=== PATIENT | female | born 1980 | race Caucasian/White ===

== ENCOUNTER 2018-10-25 20:07 | Emergency (ER) | payer MEDICAID ==
[2018-10-25] MEDS ORDERED: HYDROcod/ACETAM 5/325 MG TABLET PO STA (20:57)
[2018-10-25] MEDS ORDERED: DOXYCYCLINE 100 MG TABLET PO STA (20:57)
[2018-10-25] MEDS ORDERED: IPRATROPIUM/ALBUTEROL 3 ML NEB INH STA (20:57)
[2018-10-25] MEDS ORDERED: predniSONE 20 MG TABLET PO STA (20:57)
[2018-10-25] MEDS ORDERED: BENZONATATE 100 MG CAPSULE PO STA (20:58)
--- NOTE | 2018-10-25 21:07 | ED Physician Documentation ---
PD HPI URI - Stated complaint Stated Complaint: SOA - Chief complaint Chief Complaint: Resp - History obtained from History obtained from: Patient - History of Present Illness Timing - onset: Other (This is a 38-year-old woman with history of asthma, never hospitalized for same, also tobacco abuse who presents with 2 weeks of productive cough and severe back and chest pain related to the cough as well as shortness of breath. Her Combivent inhaler is not helping much. She has had some low-grade fevers. No pedal edema or calf pain. 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: Tubal ligation - Present Medications Home Medications: Ambulatory Orders Medication Instructions Recorded Confirmed Albuterol Sulf [Ventolin Hfa 1 - 2 puffs INH Q4HR PRN #1 inhaler 10/25/18 Inhaler] Benzonatate [Tessalon Perle] 100 - 200 mg PO TID PRN #30 capsule 10/25/18 Doxycycline Hyclate 100 mg PO BID #20 capsule 10/25/18 Hydrocodone/Acetaminophen 1 - 2 each PO Q6H PRN #14 tablet 10/25/18 [Hydrocodon-Acetaminophen 5-325] predniSONE [Deltasone] 60 mg PO DAILY 5 Days tablet 10/25/18 - Allergies Allergies/Adverse Reactions: Allergies Allergy/AdvReac Type Severity Reaction Status Date / Time codeine AdvReac Nausea Verified 10/25/18 20:13 - Social History Does the pt smoke?: Yes Smoking Status: Current every day smoker Does the pt drink ETOH?: Yes Does the pt have substance abuse?: Yes Substance Use and Type: Marijuana - Immunizations Immunizations are current?: No - POLST Patient has POLST: No PD ED PE NORMAL - Vitals Vital signs reviewed: Yes - General General: Alert and oriented X 3, No acute distress - HEENT HEENT: PERRL, EOMI, Other (Slightly hoarse and laryngitic voice with normal oropharynx) - Neck Neck: Supple, no meningeal sign, No bony TTP - Cardiac Cardiac: RRR, No murmur - Respiratory Respiratory: No respiratory distress, Other (Wheezy throughout with decreased air motion throughout, nothing focal.) - Abdomen Abdomen: Non tender - Derm Derm: No rash - Extremities Extremities: Normal ROM s pain, No edema, No calf tenderness / cord - Neuro Neuro: Alert and oriented X 3, Normal speech Results - Vitals Vitals: Vital Signs - 24 hr 10/25/18 10/25/18 20:10 21:06 Temperature 36.1 C L Heart Rate 83 84 Respiratory 17 20 Rate Blood Pressure 133/87 H O2 Saturation 99 Oxygen O2 Source Room air Departure - Departure Disposition: Home, Self Care Clinical Impression: Bronchitis Asthma Qualifiers: Asthma severity: moderate Asthma persistence: persistent Asthma complication type: with acute exacerbation Qualified Code(s): J45.41 - Moderate persistent asthma with (acute) exacerbation Condition: Good Record reviewed to determine appropriate education?: Yes Instructions: ED Bronchitis Asthmatic, ED Smoking Cessation Prescriptions: Albuterol Sulf [Ventolin Hfa Inhaler] 1 - 2 puffs INH Q4HR PRN #1 inhaler PRN Reason: Shortness Of Air/Wheezing Benzonatate [Tessalon Perle] 100 - 200 mg PO TID PRN #30 capsule PRN Reason: Cough Doxycycline Hyclate 100 mg PO BID #20 capsule Hydrocodone/Acetaminophen [Hydrocodon-Acetaminophen 5-325] 1 - 2 each PO Q6H PRN #14 tablet PRN Reason: pain predniSONE [Deltasone] 60 mg PO DAILY 5 Days tablet Comments: Call your doctor to arrange a follow-up appointment, make the next available appointment. In the interim, return anytime if worse or if new symptoms develop. Your blood pressure was elevated today on check into the emergency department. This does not mean that you have hypertension, it is a common phenomenon to come to the emergency department and have elevated blood pressure. I recommend that you see your primary care physician within the week to have it rechecked when you are feeling better. [facility] has a tobacco quit line that can help you with quitting smoking. The number is [id number] [id number]
[2018-10-25] MEDS ORDERED: HYDROcod/ACET 5/325 Prepack 4 PO STA (21:32)
[2018-10-25 21:46] VITALS: BP 116/102
== END 2018-10-25 22:03 | disposition home or self-care (01) ==
LOC: ED 20:07
DX: J40 Bronchitis, not specified as acute or chronic (principal); J45.41 Moderate persistent asthma with (acute) exacerbation; R03.0 Elevated blood-pressure reading, without diagnosis of hypertension; F17.200 Nicotine dependence, unspecified, uncomplicated
CPT/HCPCS: 94640; 94664; 99283

== ENCOUNTER 2018-12-25 19:18 | Emergency (ER) | payer MEDICAID ==
[2018-12-25 19:24] VITALS: BP 144/89
[2018-12-25] MEDS ORDERED: predniSONE 20 MG TABLET PO STA (19:37)
[2018-12-25] MEDS ORDERED: IPRATROPIUM/ALBUTEROL 3 ML NEB INH STA (19:37)
[2018-12-25] MEDS ORDERED: HYDROcod/ACETAM 5/325 MG TABLET PO STA (19:41)
--- NOTE | 2018-12-25 19:41 | ED Physician Documentation ---
PD HPI URI - Stated complaint Stated Complaint: SOA/BACK PX - Chief complaint Chief Complaint: Resp - History obtained from History obtained from: Patient - History of Present Illness Timing - onset: Other (38-year-old woman with history of asthma and tobacco abuse presents with 3 weeks of productive cough and shortness of breath with increased inhaler usage. 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: Tubal ligation - Present Medications Home Medications: Ambulatory Orders Medication Instructions Recorded Confirmed Albuterol Sulf [Ventolin Hfa 1 - 2 puffs INH Q4HR PRN #1 inhaler 10/25/18 Inhaler] Doxycycline Hyclate 100 mg PO BID #20 capsule 12/25/18 Hydrocodone/Acetaminophen 1 - 2 each PO Q6H PRN #10 tablet 12/25/18 [Hydrocodon-Acetaminophen 5-325] predniSONE [Deltasone] 60 mg PO DAILY 5 Days tablet 12/25/18 - Allergies Allergies/Adverse Reactions: Allergies Allergy/AdvReac Type Severity Reaction Status Date / Time codeine AdvReac Nausea Verified 12/25/18 19:24 - Social History Does the pt smoke?: Yes Smoking Status: Current every day smoker Does the pt drink ETOH?: Yes Does the pt have substance abuse?: Yes - Immunizations Immunizations are current?: No - POLST Patient has POLST: No PD ED PE NORMAL - Vitals Vital signs reviewed: Yes - General General: Alert and oriented X 3, No acute distress - HEENT HEENT: Pharynx benign (Laryngitic voice) - Neck Neck: Supple, no meningeal sign, No bony TTP - Cardiac Cardiac: RRR, No murmur - Respiratory Respiratory: Other (diminished throughout) - Abdomen Abdomen: Soft, Non tender - Extremities Extremities: No edema, No calf tenderness / cord - Neuro Neuro: Alert and oriented X 3, Normal speech Results - Vitals Vitals: Vital Signs - 24 hr 12/25/18 12/25/18 19:20 19:52 Temperature 36.4 C L Heart Rate 84 80 Respiratory 18 18 Rate Blood Pressure 144/89 H O2 Saturation 98 Oxygen O2 Source Room air PD MEDICAL DECISION MAKING - ED course ED course: 38-year-old woman with asthma presents with 3 weeks of productive cough and shortness of breath. Probably has some element of COPD given heavy smoking history. Feeling better after neb and steroids here. Chest x-ray grossly clear. Counseled to quit smoking. Departure - Departure Disposition: Home, Self Care Clinical Impression: Bronchitis Asthma Qualifiers: Asthma severity: moderate Asthma persistence: persistent Asthma complication type: with acute exacerbation Qualified Code(s): J45.41 - Moderate persistent asthma with (acute) exacerbation Condition: Good Record reviewed to determine appropriate education?: Yes Instructions: Bronchitis Acute Dc, ED Smoking Cessation Prescriptions: Doxycycline Hyclate 100 mg PO BID #20 capsule Hydrocodone/Acetaminophen [Hydrocodon-Acetaminophen 5-325] 1 - 2 each PO Q6H PRN #10 tablet PRN Reason: pain predniSONE [Deltasone] 60 mg PO DAILY 5 Days tablet Comments: Call your doctor to arrange a follow-up appointment, make the next available appointment. In the interim, return anytime if worse or if new symptoms develop. Forms: Activity restrictions
[2018-12-25] MEDS ORDERED: DOXYCYCLINE 100 MG TABLET PO STA (20:21)
--- NOTE | 2018-12-25 20:45 | XRAY Report ---
Reason: cough Procedure Date: 12/25/2018 Accession Number: [id number] / [id number] Procedure: XR - Chest 1 View X-Ray CPT Code: 92217 FULL RESULT: EXAM: CHEST RADIOGRAPHY EXAM DATE: 12/25/2018 08:22 PM. CLINICAL HISTORY: Cough. COMPARISON: None. TECHNIQUE: 1 view. FINDINGS: Lungs/Pleura: Mild diffuse interstitial prominence with minimal bronchial cuffing. No localized infiltrate, consolidation, effusion, or pneumothorax. Mediastinum: Within exam limitations, the cardiomediastinal contour is normal. Other: None. IMPRESSION: Interstitial prominence, most likely bronchitis versus chronic changes of reactive airways disease. RADIA
== END 2018-12-25 21:05 | disposition home or self-care (01) ==
LOC: ED 19:18
DX: J40 Bronchitis, not specified as acute or chronic (principal); J45.41 Moderate persistent asthma with (acute) exacerbation; F17.200 Nicotine dependence, unspecified, uncomplicated; Z79.51 Long term (current) use of inhaled steroids
CPT/HCPCS: 71045; 94640; 99283; A9270; J7512

== ENCOUNTER 2020-08-01 08:08 | Emergency (ER) | payer SELFPAY ==
[2020-08-01 08:27] VITALS: BP 156/104
[2020-08-01] MEDS ORDERED: PENICILLIN VK 250 MG TABLET PO STA (08:29)
--- NOTE | 2020-08-01 08:34 | ED Physician Documentation ---
History of Present Illness - Stated complaint Stated Complaint: FACIAL SWELLING - Chief complaint Chief Complaint: Heent - History obtained from History obtained from: Patient - History of Present Illness Timing: How many weeks ago (1) Pain level max: 8 Pain level now: 6 - Additonal information Additional information: R facial pain, swelling x 2 days. States tried to get into her dentist, but unable to be seen. No fevers. No chills. No vomiting. Worse with smoking, eating, drinking. States motrin not helping. Nothing makes it better. Review of Systems Constitutional: denies: Fever, Chills Ears: denies: Ear pain Nose: denies: Rhinorrhea / runny nose, Congestion Throat: reports: Dental pain / toothache. 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 - Present Medications Home Medications: Ambulatory Orders Medication Instructions Recorded Confirmed Albuterol Sulf [Ventolin Hfa 1 - 2 puffs INH Q4HR PRN #1 inhaler 10/25/18 Inhaler] HYDROcod/ACETAM 5/325 [[place] 5/325] 1 - 2 ea PO Q6H PRN #14 tablet 08/01/20 Ipratropium/Albuterol [Combivent 4 gm IH 08/01/20 Respimat] Penicillin V Potassium 500 mg PO Q6HR #40 tablet 08/01/20 - Allergies Allergies/Adverse Reactions: Allergies Allergy/AdvReac Type Severity Reaction Status Date / Time codeine AdvReac Nausea Verified 08/01/20 08:27 - Social History Does the pt smoke?: Yes Smoking Status: Current every day smoker Does the pt drink ETOH?: Yes Does the pt have substance abuse?: Yes - Immunizations Immunizations are current?: No - POLST Patient has POLST: No PD ED PE NORMAL - General General: Alert and oriented X 3, No acute distress - HEENT HEENT: Moist mucous membranes, Other (poor dentition throughout, no facial swelling, no gingival abscess. Normal phonation. No trismus.) - Neck Neck: Supple, no meningeal sign, No adenopathy - Cardiac Cardiac: RRR - Respiratory Respiratory: No respiratory distress, Clear bilaterally - Derm Derm: Warm and dry - Neuro Neuro: Alert and oriented X 3 Results - Vitals Vitals: Vital Signs - 24 hr 08/01/20 08:22 Temperature 36.8 C Heart Rate 77 Respiratory 16 Rate Blood Pressure 156/104 H O2 Saturation 100 Oxygen O2 Source Room air PD MEDICAL DECISION MAKING - ED course Complexity details: considered differential, d/w patient ED course: 40-year-old female with what appears to be dental caries causing dental pain. Will place on antibiotics and a small amount of pain medication. We will have her follow-up with her dentist for further care. No drainable abscess. Normal phonation. No trismus. Patient counseled regarding signs and symptoms for which I believe and urgent re-evaluation would be necessary. Patient with good understanding of and agreement to plan and is comfortable going home at this time This document was made in part using voice recognition software. While efforts are made to proofread this document, sound alike and grammatical errors may occur. Departure - Departure Disposition: 01 Home, Self Care Clinical Impression: Pain due to dental caries Condition: Good Instructions: ED Tooth Pain Follow-Up: your,dentist this week [Other] Prescriptions: Penicillin V Potassium 500 mg PO Q6HR #40 tablet HYDROcod/ACETAM 5/325 [[place] 5/325] 1 - 2 ea PO Q6H PRN #14 tablet PRN Reason: Pain Comments: Take all antibiotics until gone. Return if you worsen. It is important to follow-up with dentistry as soon as possible to have your tooth further evaluated. Do not drink alcohol or drive while on narcotic pain medicine. Note that many narcotic pain relievers also contain tylenol/acetaminophen. Please ensure that your total dose of acetaminophen from all sources does not exceed 3 grams (3000mg) per day. You may constipated on this medication, take a stool softener such as "Colace" twice a day while you are on it. Also recommend a egln-agf-fuoozop laxative such as senna or MiraLAX any day that you do not have a bowel movement. If you received narcotic pain medication in the emergency department, do not drive or operate machinery for the next 24 hours.
== END 2020-08-01 08:47 | disposition home or self-care (01) ==
LOC: ED 08:08
DX: K02.9 Dental caries, unspecified (principal); F17.200 Nicotine dependence, unspecified, uncomplicated
CPT/HCPCS: 99282; 99284; A9270

== ENCOUNTER 2020-08-27 04:49 | Inpatient (IN) | payer SELFPAY ==
[2020-08-27] MEDS ORDERED: HYDROmorphone 1 MG/ML CARPUJECT IVP STA (05:20)
[2020-08-27] MEDS ORDERED: KETOROLAC 30 MG/ML VIAL IVP STA (05:20)
--- NOTE | 2020-08-27 05:28 | ED Physician Documentation ---
History of Present Illness - Stated complaint Stated Complaint: FACIAL SWELLING - Chief complaint Chief Complaint: Heent - History obtained from History obtained from: Patient - Additonal information Additional information: Patient comes emergency department with chief complaint of right facial swelling despite penicillin. The patient was seen approximately 3-1/2 weeks ago at our emergency department for dental pain and facial swelling, at which time she was treated and told of her need to follow-up with the dentist. The patient did follow-up with a dentist last week and was started on penicillin. She states that initially this seemed to help, but over the last few days, the swelling has gotten steadily worse, as has the facial pain. She states that she has been able to swallow, but that it hurts and feels tight. Patient denies any fevers or chills. No vomiting. She states she has pain in one of her left mandibular molars, but no swelling on that side. Patient denies any swelling higher up on her face. She has been taking her penicillin every day as directed for 4 to 5 days and this is happened despite. No other complaints at this time. Review of Systems Ten Systems: 10 systems reviewed and negative Constitutional: reports: Reviewed and negative Eyes: reports: Reviewed and negative Ears: reports: Reviewed and negative Nose: reports: Reviewed and negative Throat: reports: Dental pain / toothache, Reviewed and negative (Swelling mandibular area right) Cardiac: reports: Reviewed and negative Respiratory: reports: Reviewed and negative GI: reports: Reviewed and negative : reports: Reviewed and negative Skin: reports: Reviewed and negative Musculoskeletal: reports: Reviewed and negative Neurologic: reports: Reviewed and negative Psychiatric: reports: Reviewed and negative Endocrine: reports: Reviewed and negative Immunocompromised: reports: Reviewed and negative PD PAST MEDICAL HISTORY - Past Medical History Past Medical History: Yes Respiratory: Asthma, Sleep apnea GI: GERD Psych: Anxiety - Past Surgical History Past Surgical History: Yes General: Cholecystectomy /[employer]: Tubal ligation - Present Medications Home Medications: Ambulatory Orders Medication Instructions Recorded Confirmed Albuterol Sulf [Ventolin Hfa 1 - 2 puffs INH Q4HR PRN #1 inhaler 10/25/18 Inhaler] Ibuprofen [Motrin] 800 mg PO Q6H PRN 08/27/20 08/27/20 Ipratropium/Albuterol [Duoneb] 3 ml INH QID PRN 08/27/20 08/27/20 Penicillin V Potassium 500 mg PO QID 08/27/20 08/27/20 clonazePAM [KlonoPIN] 0.5 mg PO BID PRN 08/27/20 08/27/20 - Allergies Allergies/Adverse Reactions: Allergies Allergy/AdvReac Type Severity Reaction Status Date / Time codeine AdvReac Nausea Verified 08/27/20 04:59 - Social History Does the pt smoke?: Yes Smoking Status: Current every day smoker Does the pt drink ETOH?: Yes Does the pt have substance abuse?: Yes - Immunizations Immunizations are current?: No - POLST Patient has POLST: No PD ED PE NORMAL - Vitals Vital signs reviewed: Yes - General General: Alert and oriented X 3, No acute distress - HEENT HEENT: Atraumatic, PERRL, EOMI, Moist mucous membranes (No drooling; patient is handling secretions well.), Other (Moderate swelling of left mandibular and submental area. No distinct abscess. No intraoral edema including gingiva. No fluctuance or mass.) - Neck Neck: Supple, no meningeal sign - Cardiac Cardiac: RRR, No murmur - Respiratory Respiratory: No respiratory distress, Clear bilaterally - Abdomen Abdomen: Soft, Non tender, Non distended - Derm Derm: Normal color, Warm and dry, No rash - Extremities Extremities: No deformity - Neuro Neuro: Alert and oriented X 3 - Psych Psych: Normal mood, Normal affect Results - Vitals Vitals: Vital Signs - 24 hr 08/27/20 08/27/20 08/27/20 04:55 07:05 07:29 Temperature 36.8 C 36.3 C L Heart Rate 84 69 59 L Respiratory 18 18 16 Rate Blood Pressure 153/92 H 134/89 H 115/90 H O2 Saturation 100 100 97 Oxygen O2 Source Room air - Labs Labs: Laboratory Tests 08/27/20 08/27/20 05:21 05:21 WBC 10.6 RBC 4.17 L Hgb 12.8 Hct 38.2 MCV 91.6 MCH 30.7 MCHC 33.5 RDW 12.9 Plt Count 326 MPV 9.3 Neut # (Auto) 7.8 H Lymph # (Auto) 1.5 [place] # (Auto) 0.9 Eos # (Auto) 0.3 Baso # (Auto) 0.1 Absolute Nucleated RBC 0.00 Nucleated RBC % 0.0 Sodium 139 Potassium 3.6 Chloride 104 Carbon Dioxide 24 Anion Gap 11.0 BUN 7 Creatinine 0.6 Estimated GFR (MDRD) 110 Glucose 96 Calcium 8.7 PD MEDICAL DECISION MAKING - ED course Complexity details: reviewed results, re-evaluated patient, considered differential, d/w patient ED course: Labs were obtained, showing a normal WBC count, after which the patient was sent for a CT of the face with IV contrast. In the meantime, the pt was treated symptomatically with IV fluids, Toradol, and Dilaudid. The pt on CT appeared to have extensive STS, with the appearance of an abscess tracking along the medial aspect of the mandible, in the area of the R molars. I started her on Decadron and Unasyn, and spoke with Dr. Perez of [facility], who will come see the pt in the ED. She is signed out to Dr. Figueroa at change of shift, awaiting final CT read and final disposition by Dr. Perez. Departure - Departure Disposition: ED Place in Observation Discharge Date/Time: 08/27/20 08:49
[2020-08-27 05:36] LABS: BASOPHILS # (AUTO) 0.1 10^3/uL (0.0-0.1); BASOPHILS % (AUTO) 0.9 %; EOSINOPHILS # (AUTO) 0.3 10^3/uL (0.0-0.7); EOSINOPHILS % (AUTO) 2.9 %; HGB - HEMOGLOBIN 12.8 g/dL (12.0-16.0); LYMPHOCYTES # (AUTO) 1.5 10^3/uL (1.5-3.5); LYMPHOCYTES % (AUTO) 14.1 %; MEAN CORPUSCULAR HEMOGLOBIN 30.7 pg (27.0-31.0); MEAN CORPUSCULAR HGB CONC 33.5 g/dL (32.0-36.0); MEAN CORPUSCULAR VOLUME 91.6 fL (81.0-99.0); MEAN PLATELET VOLUME 9.3 fL (7.9-10.8); MONOCYTES # (AUTO) 0.9 10^3/uL (0.0-1.0); MONOCYTES % (AUTO) 8.1 %; NEUTROPHILS # (AUTO) 7.8 10^3/uL (1.5-6.6); NEUTROPHILS % (AUTO) 73.6 %; PLT - PLATELET COUNT 326 10^3/uL (130-450); RED BLOOD COUNT 4.17 10^6/uL (4.20-5.40); RED CELL DISTRIBUTION WIDTH 12.9 % (12.0-15.0); WHITE BLOOD COUNT 10.6 x10^3/uL (4.8-10.8)
[2020-08-27] MEDS: ONDANSETRON 4 MG/2 ML VIAL IVP STA ×2 (05:41→14:49)
[2020-08-27] MEDS ORDERED: ONDANSETRON 4 MG/2 ML VIAL ONE ×2 (05:45→12:37)
[2020-08-27 05:51] LABS: CALCIUM 8.7 mg/dL (8.5-10.3); CREATININE 0.6 mg/dL (0.4-1.0)
[2020-08-27] MEDS ORDERED: IOVERSOL 320 100 ML VIAL IVP ONE ×2 (05:53→06:18)
[2020-08-27] MEDS ORDERED: DEXAMETHASONE 10 MG/ML VIAL IV STA (06:25)
[2020-08-27] MEDS ORDERED: AMPICILLIN/SULBACTAM 3 GM in SODIUM CHLORIDE 0.9% MINIBAG 100 ML IV STA (06:26)
--- NOTE | 2020-08-27 08:01 | CT Report ---
PROCEDURE: MAXILLOFACIAL W INDICATIONS: R facial swelling despite abx CONTRAST: IV CONTRAST: Optiray 320 ml: 80 PO CONTRAST: *NO PO CONTRAST TECHNIQUE: After the administration of intravenous contrast, 3.0 mm axial sections acquired from the mid-neck to the frontal sinuses, with coronal reformatting. For radiation dose reduction, the following was use d: automated exposure control, adjustment of mA and/or kV according to patient size. COMPARISON: None. FINDINGS: Image quality: Limited by beam hardening artifact related to metallic dental hardware and metallic pi ercings. Soft tissues: 2.1 x 1.0 x 1.7 cm fluid collection with discontiguous, subtle peripheral postcontrast enhancement is noted in the floor the mouth soft tissues along the lingual margin of the right mandib ular body concerning for early periodontal abscess. Extensive right facial soft tissue swelling noted with stranding and inflammation involving the right submandibular and right oral cavity soft tissues . Enlarged right level 1 and level 2 lymph nodes are noted Vascular: Visualized vascular structures appear patent throughout. Bony vascular foramina and canal s appear normal. Bones: Right lower second molar periapical lucency with small area of adjacent endometrial cortical d estruction noted. Visualized portions of the skull base and auditory canals also appear normal. Sinuses: Paranasal sinuses are aerated without fluid levels, mucosal thickening, or mucoceles. Mast oid air cells are aerated. IMPRESSION: 1. Probable early 2.1 x 1.0 x 1.7 cm periodontal abscess involving the right floor of the mouth adjac ent to the lingual margin of the body of the right mandible. 2. Small right lower third molar periapical lucency with small area of right mandibular cortical eros ion compatible with osteomyelitis. 3. Extensive right facial soft tissue cellulitis. 4. Right level 1 and level 2 neck lymphadenopathy likely reactive. Reviewed by: Kristi Perez MD, PhD on 08/27/2020 7:59 AM PST Approved by: Kristi Perez MD, PhD on 08/27/2020 7:59 AM PST Station ID: [id number]
--- NOTE | 2020-08-27 08:02 | HISTORY & PHYSICAL EXAMINATION ---
Chief Complaint - Chief Complaint Chief Complaint: Neck Swelling History of Present Illness - Admitted From Admitted From:: ER - History Obtained From History obtained from: Patient - History of Present Illness HPI Comment/Other: 40 yo F w/ 7 days of increasing swelling of the R buccal sp and R submandibular sp. She reports dental pain on the maxillary left which she saw her dentist for. Her dentist gave her penicillin which she has been taking. Interestingly, the swelling began on the R during this time. She currently reports dysphagia, dyspnea, globus, trismus, and odontalgia at site #31. 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: Tubal ligation - Substance History Use: Uses substance without health or social issues: Tobacco, Cannabis Tobacco Details: Cigarettes - POLST Patient has POLST: No Meds/Allgy - Home Medications Home Medications: Ambulatory Orders Medication Instructions Recorded Confirmed Albuterol Sulf [Ventolin Hfa 1 - 2 puffs INH Q4HR PRN #1 inhaler 10/25/18 Inhaler] Ipratropium/Albuterol [Combivent 4 gm IH 08/01/20 Respimat] - Allergies Allergies/Adverse Reactions: Allergies Allergy/AdvReac Type Severity Reaction Status Date / Time codeine AdvReac Nausea Verified 08/27/20 04:59 Review of Systems - Constitutional Constitutional: reports: Other (A 14 point ROS was completed and found to be negative except as noted above in HPI) Exam - Vital Signs Reviewed Vital Signs: Yes Vital Signs: Vital Signs x48h Temp Pulse Resp BP Pulse Ox 08/27/20 07:29 59 L 16 115/90 H 97 08/27/20 07:05 36.3 C L 69 18 134/89 H 100 08/27/20 04:55 36.8 C 84 18 153/92 H 100 - Physical Exam General Appearance: positive: No acute distress Eyes Bilateral: positive: PERRL, EOMI ENT: positive: Other (RAD 20mm, limited by pain. Edema of the R FOM. Uvula midline. No lateral pharyngeal swelling. Tooth #31 ttp.) Neck: positive: Other (Indurated swelling of the R submandibular area extending to the L submandibular and to the R buccal sp.) Respiratory: positive: Chest non-tender, No respiratory distress, Breath sounds nml Cardiovascular: positive: Regular rate & rhythm, No murmur Peripheral Pulses: positive: 2+ Abdomen: positive: Non-tender, No distention Skin: positive: Color nml, Other (Mild erythema over the R submandibular area. It does not extend inferiorly past the thyroid cartilage) Extremities: positive: Non-tender, Full ROM Neurologic/Psychiatric: positive: CN's nml (2-12) Conclusion/Plan - Problem List (1) Submandibular abscess Conclusion/Plan: 40 yo F w/ R submandibular, R buccal, R sublingual, L submandibular, submental sp abscess and cellulitis. Handling secretions well Laying supine Calm WBC wnl No elevation of the tongue P: I&D of the infected spaces (transcervical) with removal of tooth #31 in the MOR under general anesthesia today. - Unasyn 3g q6h - admit to inpatient. Anticipate 2 night stay after I&D. - NPO today, soft diet after surgery Thank you for including me in Donna's care. Please call with any questions. [phone] - Lab Results Fish Bones: 08/27/20 05:21 08/27/20 05:21 - Diagnostic Imaging Results Diagnostic Imaging Results: positive: Other (There is a 1.9 cm abscess of the R medial mandible, approximating a perforation in the lingual cortex at the apex of tooth #31. There is moderate mass effect on the airway, causing deviation and effacement but no constriction.)
[2020-08-27] MEDS ORDERED: SODIUM CHLORIDE FLUSH 0.9% 10 ML SYRINGE IVP PRN (08:15)
[2020-08-27] MEDS ORDERED: LORazepam 1 MG TABLET PO PRN (09:43)
[2020-08-27] MEDS: D5.45NS W/20 MEQ KCL 1,000 ML IV SCH ×3 (09:45→20:04)
[2020-08-27] MEDS: MORPHINE 2 MG/ML CARPUJECT IVP PRN ×6 (09:47→23:56)
--- NOTE | 2020-08-27 09:47 | ANESTHESIA ---
Pre-Anesthesia VS, & Labs - Diagnosis Submandibular Abcess, Right - Procedure I&D of Submandibular Abcess. Right Vital Signs: Temp Pulse Resp BP Pulse Ox 36.3 C L 59 L 16 115/90 H 97 08/27/20 07:05 08/27/20 07:29 08/27/20 07:29 08/27/20 07:29 08/27/20 07:29 Height: 5 ft 7 in Weight (kg): 120.202 kg Body Mass Index: 41.5 BMI Classification: Morbidly Obese - NPO >8 hours - Is Patient ?: No - Lab Results Current Lab Results: Laboratory Tests 08/27/20 05:21: Sodium 139, Potassium 3.6, Chloride 104, Carbon Dioxide 24, Anion Gap 11.0, BUN 7, Creatinine 0.6, Estimated GFR (MDRD) 110, Glucose 96, Calcium 8.7 08/27/20 05:21: WBC 10.6, RBC 4.17 L, Hgb 12.8, Hct 38.2, MCV 91.6, MCH 30.7, MCHC 33.5, RDW 12.9, Plt Count 326, MPV 9.3, Neut # (Auto) 7.8 H, Lymph # (Auto) 1.5, [place] # (Auto) 0.9, Eos # (Auto) 0.3, Baso # (Auto) 0.1, Absolute Nucleated RBC 0.00, Nucleated RBC % 0.0 Fish Bones: 08/27/20 05:21 08/27/20 05:21 Home Medications and Allergies Active Medications Hydrocodone Bitart/Acetaminophen (Hydrocod/Acetam 5/325 Mg Tablet) 1 tab PO Q4HR PRN PRN Reason: Pain 5 to 7 Enoxaparin Sodium (Enoxaparin 40 Mg/0.4 Ml Syringe) 40 mg SUBQ DAILY QUANG Potassium Chloride/Dextrose/Sod Cl (D5.45ns W/20 Meq Kcl) 1,000 mls @ 100 mls/hr IV .Q10H QUANG Ampicillin Sodium/Sulbactam (Sodium 3 gm/ Sodium Chloride) 100 mls @ 200 mls/hr IV Q6HR QUANG Ibuprofen (Ibuprofen 600 Mg Tablet) 600 mg PO Q6HR PRN PRN Reason: Pain 1 to 4 Lorazepam (Lorazepam 1 Mg Tablet) 1 mg PO Q6H PRN PRN Reason: Anxiety Morphine Sulfate (Morphine 2 Mg/Ml Carpuject) 2 mg IVP Q2HR PRN PRN Reason: Pain 8 to 10 Sodium Chloride (Sodium Chloride Flush 0.9% 10 Ml Syringe) 10 ml IVP PRN PRN PRN Reason: NEEDED PER PROVIDER ORDERS Sodium Chloride (Sodium Chloride Flush 0.9% 10 Ml Syringe) 10 ml IVP 0100,0900,1700 QUANG Ipratropium/Albuterol [Combivent Respimat] 4 gm IH 08/01/20 Allergies/Adverse Reactions: Allergies Allergy/AdvReac Type Severity Reaction Status Date / Time codeine AdvReac Nausea Verified 08/27/20 04:59 Anes History & Medical History - Anesthetic History Anesthesia Complications: reports: No previous complications Family history of Anesthesia Complications: Denies Family history of Malignant Hyperthermia: Denies - Medical History Cardiovascular: reports: Other Pulmonary: reports: Asthma (States is breathing well today. Will have her take her inhaler now and pre-op. Lungs are clear.), Sleep apnea (Uses CPAP, will have RT provide in house CPAP) Gastrointestinal: reports: GERD (Occasional. Takes RX as well as over counter) Urinary: reports: None Neuro: reports: CVA (8 years ago, only had vertigo for short period after. Now no residuals.), Headaches Musculoskeletal: reports: Chronic back pain (Lifts boxes at work), Other (Morbid Obesity) Endocrine/Autoimmune: reports: None Blood Disorders: reports: None Skin: reports: None Smoking Status: Current every day smoker Psychosocial: reports: Anxiety, Anxiolytic, Cannabis History of Cancer?: No Other Past Medical History: has knee pain rt work, lifting bending at 7 -11 - Surgical History General: Cholecystectomy Gynecologic: Tubal ligation Exam General: Alert, Oriented x3, Cooperative, Mild distress (Ordered lorazapam) Dental: Poor dentition, Other (None loose) Mouth Openin Fingerbreadth (Painful and crying when opening mouth) Neck Mobility: Normal Mallampati classification: III Thyromental Distance: 4-6 cm (Has underlying thick, neck. Now with firm swelling to right mandibular area. painful to open mouth.) Respiratory: Lungs clear Cardiovascular: Regular rate Plan Anesthesia Type: General (Nasal) Consent for Procedure(s) Verified and Reviewed: Yes Code Status: Attempt Resuscitation ASA classification: 3-Severe systemic disease Is this case an emergency?: Yes (Discussed anesthesia. Consent signed.)
[2020-08-27] MEDS: SODIUM CHLORIDE FLUSH 0.9% 10 ML SYRINGE IVP SCH ×3 (10:15→20:47)
[2020-08-27] MEDS: AMPICILLIN/SULBACTAM 3 GM in SODIUM CHLORIDE 0.9% MINIBAG 100 ML IV SCH ×3 (11:44→23:45)
--- NOTE | 2020-08-27 11:55 | PHARMACY PROGRESS NOTE ---
- Best Possible Medication History Admit Date and Time: 08/27/20 0815 Processed by: Pharmacy Medication History completed: Yes Patient Interview: Completed Secondary Source(s): Insurance records As the person ultimately responsible for medication therapy, providers are able to order a medication from an existing home medication list in [facility] via the "Reconcile Routine" prior to Confirmation of that medication by desktop support engineer. Such practice is discouraged except when the physician, in their clinical judgment, deems that a medical need exists for a medication without regard to previous use.
[2020-08-27] MEDS ORDERED: OXYMETAZOLINE HCL 100 SPRAYS BOTTLE NAS ONE ×2 (12:05→13:03)
[2020-08-27] MEDS ORDERED: SUCCINYLCHOLINE 200 MG/10 ML VIAL ONE (12:36)
[2020-08-27] MEDS ORDERED: PROPOFOL 200 MG/20 ML VIAL IVP ONE (12:37)
[2020-08-27] MEDS ORDERED: LIDOCAINE-MPF 2% 5 ML VIAL ONE (12:37)
[2020-08-27] MEDS ORDERED: DEXAMETHASONE 4 MG/ML VIAL ONE ×2 (12:37→12:40)
[2020-08-27] MEDS ORDERED: CHLORHEXIDINE GLUCONATE 15 ML UDC PO ONE ×2 (13:03→13:44)
[2020-08-27] MEDS ORDERED: LIDOCAINE 2%-EPI 1:100000 20 ML MDV ONE (13:04)
[2020-08-27] MEDS ORDERED: BUPIVACAINE 0.5%-EPI 1:200000 PF 30 ML VIAL ONE (13:05)
[2020-08-27] MEDS ORDERED: fentaNYL 100 MCG/2 ML VIAL ONE ×2 (13:11→13:49)
[2020-08-27] MEDS ORDERED: LIDOCAINE 2%-EPI 1:100000 20 ML MDV SUBQ ONE (13:45)
[2020-08-27] MEDS ORDERED: LACTATED RINGERS 1,000 ML IV ONE (14:08)
--- NOTE | 2020-08-27 15:20 | OPERATIVE REPORT ---
DATE OF SERVICE: 08/27/2020 Physician: Faustino Perez DDRaphael PROCEDURE PERFORMED: Extraoral incision and drainage of the right submandibular, left submandibular, right sublingual, submental, and right buccal spaces. PREOPERATIVE DIAGNOSIS: Abscess and cellulitis of the right submandibular and sublingual, submental, and in the left submandibular spaces secondary to necrotic tooth #31. POSTOPERATIVE DIAGNOSIS: Abscess and cellulitis of the right submandibular and sublingual, submental, and in the left submandibular spaces secondary to necrotic tooth #31. ESTIMATED BLOOD LOSS: 25 mL DRAINS, PACKS, CATHETERS: 1/4-inch [place] drain was placed into the right submandibular space via the right neck incision. ANESTHESIA TYPE: General anesthesia via oral endotracheal intubation. QUARTER FOLDER: Konstantin. COMPLICATIONS: None. SPECIMENS: A sample of the purulence was collected through the neck and submitted to microbiology. INDICATIONS FOR PROCEDURE: This is a 40-year-old female who has a 1-week history of progressive swelling of the right neck and face. Clinical and radiographic examination is consistent with a developing Cristofer's angina with abscess and cellulitis of the right sublingual, right submandibular, left submandibular, submental, and right buccal spaces. It was decided that incision and drainage of this abscess with removal of the offending tooth was necessary. The risks, benefits and alternatives of this plan were discussed with the patient including pain, swelling, bleeding, infection, poor cosmesis, scarring, damage to nerves causing numbness and/or paralysis of the face, need for further surgeries, and recurrence of the infection and loss of airway with need for tracheotomy. Adequate time was given to answer all questions, and informed consent was obtained. DESCRIPTION OF PROCEDURE: The patient was brought to the main operating room and placed in a supine position on the operating table. General anesthesia was induced by the anesthesia team, and the airway was secured with an oral endotracheal tube taped to the left side of the mouth. The patient was prepped and draped in standard sterile fashion for an incision and drainage of a neck abscess. All pressure points were padded and checked. The eyes were protected with Tegaderms. A formal timeout was executed. Local anesthesia was achieved with 5 mL of 2% lidocaine with 1:100,000 epinephrine. Attention was directed to the right neck. A 15 blade was used to make a 2 cm incision through the skin. Blunt dissection passed the skin was performed with a curved Anayeli down to bone. The curved Anayeli was then used to direct the dissection on the medial surface of the mandible encountering a moderate amount of purulence. The purulence was sampled and sent to Microbiology for Gram stain, aerobic and anaerobic culture and sensitivity. The entire aspect of the abscess cavity was explored with blunt dissection. The buccal space, the right submandibular, the left submandibular and the sublingual space and the submental space were explored with blunt dissection with the curved Anayeli. The site was irrigated copiously. A 1/4-inch [place] drain was placed into the right sublingual space via the right submandibular incision and sewn to the skin with a single silk suture. Attention was then directed intraorally. A throat pack was placed. Tooth #31 was removed with routine elevator and forceps technique. The site was irrigated copiously. The mouth was rinsed free of debris. The throat pack was removed. The patient's face was cleansed. The neck wound was dressed. Care of the patient was returned to the anesthesia team. The patient was emerged uneventfully from anesthesia. She was transferred to the PACU in stable condition. TD: 08/27/2020 13:27 susie MEJIA
--- NOTE | 2020-08-27 16:23 | ANESTHESIA POST OP EVALUATION ---
Anesthesia Post Eval - Post Anesthesia Eval Vitals: Last Vital Signs Temp 36.3 C L 08/27/20 16:00 Pulse 81 08/27/20 16:00 Resp 16 08/27/20 16:00 BP 142/81 H 08/27/20 16:00 Pulse Ox 92 08/27/20 16:00 CV Function Including HR & BP: positive: Stable Pain Control: positive: Satisfactory Nausea & Vomiting: positive: Negative Mental Status: positive: Baseline Respiratory Status: Airway Patent Hydration Status: Satisfactory (Awake and alert. Transferred to [facility].)
[2020-08-27] MEDS ORDERED: ALBUTEROL NEB 2.5 MG/3 ML INH PRN (18:05)
[2020-08-27] MEDS: IBUPROFEN 600 MG TABLET PO PRN (21:22)
[2020-08-27] MEDS: NICOTINE 14 MG PATCH TOP SCH (21:22)
[2020-08-27 21:45] LABS: C. PNEUMONIAE- RESP PCR PANEL NOT DETECTED
[2020-08-28] MEDS: IBUPROFEN 600 MG TABLET PO PRN ×3 (04:22→17:59)
[2020-08-28] MEDS: MORPHINE 2 MG/ML CARPUJECT IVP PRN (04:22)
[2020-08-28] MEDS: AMPICILLIN/SULBACTAM 3 GM in SODIUM CHLORIDE 0.9% MINIBAG 100 ML IV SCH ×3 (05:34→18:08)
[2020-08-28] MEDS ORDERED: ENOXAPARIN 40 MG/0.4 ML SYRINGE SUBQ SCH (09:00)
[2020-08-28] MEDS: HYDROcod/ACETAM 5/325 MG TABLET PO PRN ×2 (09:01→13:09)
[2020-08-28] MEDS: NICOTINE 14 MG PATCH TOP SCH (09:01)
[2020-08-28] MEDS: SODIUM CHLORIDE FLUSH 0.9% 10 ML SYRINGE IVP SCH ×2 (09:02→18:08)
--- NOTE | 2020-08-28 10:15 | PROVIDER PROGRESS NOTE ---
Subjective - Prog Note Date Prog Note Date: 08/28/20 Prog Note Time: 10:13 - Subjective Pt reports feeling: Improved (No events overnight. Eating and drinking without difficulty. Ambulating and voiding. Changed the dressing this am, with serosanguinous drainage.) Objective - Vital Signs/Intake & Output Reviewed Vital Signs: Yes Vital Signs: Vital Signs x48h Temp Pulse Resp BP BP Pulse Ox 08/28/20 07:42 36.6 C 79 16 129/80 97 08/28/20 04:22 80 143/88 H 08/28/20 04:09 36.6 C 97 20 158/86 H 98 Intake & Output: Intake & Output 08/25/20 08/26/20 08/27/20 08/28/20 23:59 23:59 23:59 23:59 Intake Total 1138 320 Output Total 600 500 Balance 538 -180 - Objective General Appearance: positive: No acute distress, Alert Eyes Bilateral: positive: PERRL, EOMI ENT: positive: Other (RAD significantly improved to 30mm today. Occlusion stable and repeatable. No V3 anesthesia. Mild elevatio of the L FOM. Uvula midline. No lateral pharyngeal swelling.) Neck: positive: Other (Decreased swelling, induration, and tenderness of the R submandibular region. Drain intact with moderate serosanguinous output.) Respiratory: positive: No respiratory distress, Breath sounds nml - Lab Results Fish Bones: 08/27/20 05:21 08/27/20 05:21 Other Labs: Lab Results x24hrs 08/27/20 Range/Units 20:30 Nasal Adenovirus (PCR) NOT DETECTED Nasal B. parapertussis DNA (PCR) NOT DETECTED Nasal Coronavir 229E PCR NOT DETECTED Nasal Coronavir HKU1 PCR NOT DETECTED Nasal Coronavir NL63 PCR NOT DETECTED Nasal Coronavir OC43 PCR NOT DETECTED Nasal Enterovir/Rhinovir PCR NOT DETECTED Nasal Influenza B PCR NOT DETECTED Nasal Influenza A PCR NOT DETECTED Nasal Parainfluen 1 PCR NOT DETECTED Nasal Parainfluen 2 PCR NOT DETECTED Nasal Parainfluen 3 PCR NOT DETECTED Nasal Parainfluen 4 PCR NOT DETECTED Nasal RSV (PCR) NOT DETECTED Nasal B.pertussis DNA PCR NOT DETECTED Nasal C.pneumoniae (PCR) NOT DETECTED Maurilio Human Metapneumo PCR NOT DETECTED Nasal M.pneumoniae (PCR) NOT DETECTED Nasal SARS-CoV-2 (PCR) NOT DETECTED Assessment/Plan - Problem List (1) Submandibular abscess Impression: Markedly improved on POD #1. Plan: Discharge to home this evening after 6:00 dose of antibiotics - soft diet - encouraged ambulation - jaw stretching exercises - change dressing BID and PRN - sleep w/ HOB elevated. Please call with questions. Faustino Perez, JANEES [phone]
--- NOTE | 2020-08-28 10:39 | DISCHARGE SUMMARY ---
"Discharge Summary Admit Date: 08/27/20 Discharge Date: 08/28/20 Discharging Provider: Faustino Perez Primary Care Provider: Sunshine Code Status: Attempt Resuscitation Condition at Discharge: Good Discharge Disposition: 01 Home, Self Care - DIAGNOSES Admission Diagnoses: Right submandibular space abscess Discharge Diagnoses with Status of Each Condition: Right submandibular space abscess s/p I&D with progression towards resolution - HPI History of Present Illness: 40 yo F w/ 7 d h/o increasing swelling of the L submanidbular and adjacent spp, including the floor of the mouth on the right. Symptoms progressed to difficulty breathing and swallowing, with senatio of globus, and the pt pre sented to ER - CONSULTS | PROCEDURES Consultations: OMFS Procedures: I&D of the R submandibular, sublingual, submental, and L submandibular spaces with removal of tooth #31 - HOSPITAL COURSE Hospital Course: Admitted in the am of 08/27 from the ER to the floor. Started on Unasyn 3g q6h. I&D performed on 08/27 at 1300, with good drainage and removal of the offending tooth. Returned to med/surg floor. Afebrile and rested well overnight. Significantly improved symptoms and clinical exam in the am. Drain d/c'd in am. Pt discharged after last dose of Unasyn at 1800. - ALLERGIES Allergies/Adverse Reactions: Allergies Allergy/AdvReac Type Severity Reaction Status Date / Time codeine AdvReac Nausea Verified 08/27/20 04:59 - MEDICATIONS Home Medications: Ambulatory Orders Medication Instructions Recorded Confirmed Albuterol Sulf [Ventolin Hfa 1 - 2 puffs INH Q4HR PRN #1 inhaler 10/25/18 08/27/20 Inhaler] Ibuprofen [Motrin] 800 mg PO Q6H PRN 08/27/20 08/27/20 Ipratropium/Albuterol [Duoneb] 3 ml INH QID PRN 08/27/20 08/27/20 Penicillin V Potassium 500 mg PO QID 08/27/20 08/27/20 clonazePAM [KlonoPIN] 0.5 mg PO BID PRN 08/27/20 08/27/20 - PHYSICAL EXAM AT DISCHARGE General Appearance: positive: No acute distress Eyes Bilateral: positive: Normal inspection ENT: positive: Other (RAD 30mm. Moderate edema of the R ROM. No tongue elevation. Uvula midline. No lateral pharyngeal swelling. ) Neck: positive: Other (Incision continues to drain serosanguinous output. Markedly decreased swelling since yesterday) Respiratory: positive: Chest non-tender, No respiratory distress Cardiovascular: positive: Regular rate & rhythm - LABS Result Diagrams: 08/27/20 05:21 08/27/20 05:21 - TIME SPENT Time Spent in Discharge (Minutes): 25"
--- NOTE | 2020-08-28 10:51 | Discharge Plan ---
Discharge Plan Problem Reviewed?: Yes Disposition: Home, Self Care Condition: Good Prescriptions: Ibuprofen [Motrin] 600 mg PO Q6HR PRN 5 Days #20 tablet PRN Reason: Pain 1 to 4 Diet: Soft Activity Restrictions: Activity as Tolerated Shower Restrictions: No Driving Restrictions: No Additional Instructions or Follow Up instructions: Follow up on Tuesday, Sep 01 at: [facility] Faustino Perez DDS [id number] [id number] No appointment required for this follow up. No Smoking: If you smoke, Please STOP! Call for help.
[2020-08-28 18:27] VITALS: BP 131/84
--- NOTE | 2020-09-02 20:46 | ED Physician Documentation ---
ED Addendum - Addendum Addendum: 09/02/20 20:43 40-year-old female with a dental abscess was admitted to the hospital under the care of Dr. Faustino Perez and she had the abscess drained tooth removed and received IV antibiotic. Assessment: Dental abscess Disposition: patient admitted to observation under the care of Dr. Faustino Perez
== END 2020-08-28 18:57 | disposition home or self-care (01) | DRG 158 ==
LOC: ED 04:49 → MS2 08:15
PROVIDERS: ADMIT Dentist Oral and Maxillofacial Surgery; ATTEND Dentist Oral and Maxillofacial Surgery
PROC: 0J9100Z Drainage of Face Subcutaneous Tissue and Fascia with Drainage Device, Open Approach (ICD-10-PCS; principal; 2020-08-27 13:00)
PROC: 0CTX0Z0 Resection of Lower Tooth, Single, Open Approach (ICD-10-PCS; 2020-08-27 13:00)
DX: K12.2 Cellulitis and abscess of mouth (principal); L02.01 Cutaneous abscess of face; L02.11 Cutaneous abscess of neck; Z68.41 Body mass index [BMI] 40.0-44.9, adult; K04.7 Periapical abscess without sinus; F17.210 Nicotine dependence, cigarettes, uncomplicated; E66.01 Morbid (severe) obesity due to excess calories; Z86.73 Personal history of transient ischemic attack (TIA), and cerebral infarction without residual deficits; J45.909 Unspecified asthma, uncomplicated; Z20.828 Contact with and (suspected) exposure to other viral communicable diseases
CPT/HCPCS: 0202U; 70487; 80048; 85025; A9270; J0330; J1170; J1650; J7120; J8499; Q9967

== ENCOUNTER 2021-08-27 13:18 | Emergency (ER) | payer MEDICAID ==
[2021-08-27] MEDS ORDERED: BENZONATATE 100 MG CAPSULE PO STA (14:20)
[2021-08-27] MEDS ORDERED: ALBUTEROL 1 PUFF INH STA (14:20)
[2021-08-27] MEDS ORDERED: predniSONE 20 MG TABLET PO STA (14:20)
--- NOTE | 2021-08-27 14:22 | ED Physician Documentation ---
PD HPI DYSPNEA - Stated complaint Stated Complaint: SOA - Chief complaint Chief Complaint: Resp - History obtained from History obtained from: Patient - Additional information Additional information: 41-year-old woman with history of asthma has had increased asthma symptoms over the last 4 days with minimally productive cough, wheezing. Her back and neck are hurting from the coughing. No fevers. She is not vaccinated against Covid. No other clear inciting factor. No pedal edema or calf pain. Review of Systems Constitutional: denies: Fever, Chills Ears: denies: Ear pain Nose: reports: Rhinorrhea / runny nose Throat: denies: Sore throat Respiratory: reports: Dyspnea, Cough PD PAST MEDICAL HISTORY - Past Medical History Cardiovascular: Other Respiratory: Asthma, Sleep apnea Neuro: CVA (8 years ago, only had vertigo for short period after. 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: Tubal ligation - Present Medications Home Medications: Ambulatory Orders Medication Instructions Recorded Confirmed Ibuprofen [Motrin] 800 mg PO Q6H PRN 08/27/20 08/27/20 Ipratropium/Albuterol [Duoneb] 3 ml INH QID PRN 08/27/20 08/27/20 clonazePAM [KlonoPIN] 0.5 mg PO BID PRN 08/27/20 08/27/20 Amox/Clav 875/125 [Augmentin] 1 each PO Q12H 7 Days #14 tablet 08/28/20 Ibuprofen [Motrin] 600 mg PO Q6HR PRN 5 Days #20 08/28/20 tablet Albuterol 2.5 mg INH Q4H PRN #30 neb 08/27/21 Benzonatate [Tessalon] 200 mg PO QID PRN #20 cap 08/27/21 predniSONE [Deltasone] 60 mg PO DAILY 5 Days #15 tablet 08/27/21 - Allergies Allergies/Adverse Reactions: Allergies Allergy/AdvReac Type Severity Reaction Status Date / Time cephalexin [From Keflex] AdvReac Unknown Verified 08/27/21 13:27 codeine AdvReac Nausea Verified 08/27/20 04:59 - Social History Does the pt smoke?: Yes Smoking Status: Current every day smoker Does the pt drink ETOH?: Yes Does the pt have substance abuse?: Yes - Immunizations Immunizations are current?: No - POLST Patient has POLST: No PD ED PE NORMAL - Vitals Vital signs reviewed: Yes - General General: Alert and oriented X 3, No acute distress - HEENT HEENT: Pharynx benign - Neck Neck: Supple, no meningeal sign, No bony TTP - Cardiac Cardiac: RRR, No murmur - Respiratory Respiratory: No respiratory distress, Other (Rhonchorous and wheezy throughout without focal findings) - Abdomen Abdomen: Non tender - Back Back: No spinal TTP - Derm Derm: Normal color, Warm and dry - Extremities Extremities: No edema, No calf tenderness / cord - Neuro Neuro: Alert and oriented X 3, Normal speech Results - Vitals Vitals: Vital Signs - 24 hr 08/27/21 08/27/21 13:23 13:27 Temperature 36.1 C L 36.5 C Heart Rate 80 80 Respiratory 24 24 Rate Blood Pressure 148/102 H 148/102 H O2 Saturation 98 98 Oxygen O2 Source Room air PD MEDICAL DECISION MAKING - ED course ED course: 41-year-old woman presents with asthma exacerbation. She is not in extremis. She is administered multiple puffs from an MDI here with improvement and also Tessalon and prednisone. Initially she did not want Covid testing but subsequently did want it when she found out she could probably go back to work much faster if she had a negative Covid test. Departure - Departure Disposition: 01 Home, Self Care Clinical Impression: Asthma Qualifiers: Asthma severity: moderate Asthma persistence: persistent Asthma complication type: with acute exacerbation Qualified Code(s): J45.41 - Moderate persistent asthma with (acute) exacerbation Condition: Good Record reviewed to determine appropriate education?: Yes Instructions: Asthma Dc Prescriptions: Albuterol 2.5 mg INH Q4H PRN #30 neb PRN Reason: Wheezing predniSONE [Deltasone] 60 mg PO DAILY 5 Days #15 tablet Benzonatate [Tessalon] 200 mg PO QID PRN #20 cap PRN Reason: Cough Comments: Call your doctor to arrange a follow-up appointment, make the next available appointment. In the interim, return anytime if worse or if new symptoms develop. You have a Covid test pending. You need to self quarantine until the result is done and negative. Do not leave your house. Do not get near anybody. The results should be done in 48 to 72 hours. We will call with a positive result, the fastest way to get a negative result for confirmation though is to go to the hospital website at [email or web address], click on the my [facility] tab and sign up for the patient portal. If any friends or family get sick and would like to have a Covid test done, but do not have signs or symptoms that would necessitate being hospitalized, there are multiple local options for Covid testing. [facility] keeps an updated list of testing and vaccination options at: [email or web address]. Forms: Activity restrictions
[2021-08-27 15:00] VITALS: BP 130/90
== END 2021-08-27 14:56 | disposition home or self-care (01) ==
LOC: ED 13:18
DX: J45.41 Moderate persistent asthma with (acute) exacerbation (principal); F17.200 Nicotine dependence, unspecified, uncomplicated; Z20.822 Contact with and (suspected) exposure to COVID-19
CPT/HCPCS: 87635; 94640; 94664; 99283; A9270; J7512

== ENCOUNTER 2021-10-23 12:30 | Emergency (ER) | payer OTHER, MEDICAID ==
--- NOTE | 2021-10-23 13:10 | ED Physician Documentation ---
History of Present Illness - Stated complaint Stated Complaint: LEFT HAND INJURY - Chief complaint Chief Complaint: Trauma Ext - History obtained from History obtained from: Patient - History of Present Illness Pain level max: 6 Pain level now: 4 - Additonal information Additional information: 41-year-old female presents to the emergency department after a metal trash can lid was slammed on her left hand. Has bruising and swelling. Pain with movement. Patient is right-handed. Patient was at work today when this happened. Review of Systems Constitutional: denies: Fever, Chills : denies: Now EGA Skin: denies: Rash Musculoskeletal: denies: Neck pain, Back pain Neurologic: denies: Headache PD PAST MEDICAL HISTORY - Past Medical History Past Medical History: Yes Cardiovascular: Other Respiratory: Asthma, Sleep apnea Neuro: CVA (8 years ago, only had vertigo for short period after. 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 - Present Medications Home Medications: Ambulatory Orders Medication Instructions Recorded Confirmed Ibuprofen [Motrin] 800 mg PO Q6H PRN 08/27/20 08/27/20 Ipratropium/Albuterol [Duoneb] 3 ml INH QID PRN 08/27/20 08/27/20 clonazePAM [KlonoPIN] 0.5 mg PO BID PRN 08/27/20 08/27/20 Amox/Clav 875/125 [Augmentin] 1 each PO Q12H 7 Days #14 tablet 08/28/20 Ibuprofen [Motrin] 600 mg PO Q6HR PRN 5 Days #20 08/28/20 tablet Albuterol 2.5 mg INH Q4H PRN #30 neb 08/27/21 Benzonatate [Tessalon] 200 mg PO QID PRN #20 cap 08/27/21 predniSONE [Deltasone] 60 mg PO DAILY 5 Days #15 tablet 08/27/21 HYDROcod/ACETAM 5/325 [[place] 5/325] 1 - 2 ea PO Q6H PRN #14 tablet 10/23/21 Ibuprofen [Motrin] 800 mg PO Q8H PRN #30 tablet 10/23/21 - Allergies Allergies/Adverse Reactions: Allergies Allergy/AdvReac Type Severity Reaction Status Date / Time cephalexin [From Keflex] AdvReac Unknown Verified 10/23/21 12:48 codeine AdvReac Nausea Verified 10/23/21 12:48 - Social History Does the pt smoke?: Yes Smoking Status: Current every day smoker Does the pt drink ETOH?: Yes Does the pt have substance abuse?: Yes - Immunizations Immunizations are current?: No - POLST Patient has POLST: No PD ED PE NORMAL - Vitals Vital signs reviewed: Yes - General General: Alert and oriented X 3 - HEENT HEENT: Moist mucous membranes - Neck Neck: Supple, no meningeal sign - Cardiac Cardiac: RRR - Derm Derm: Warm and dry - Extremities Extremities: Other (Tender palpation over the dorsum of the left hand, especially over the second and third MCP joints. Neurovascularly intact. Limited range of motion of the fingers, especially the index and middle finger secondary to pain.) - Neuro Neuro: Alert and oriented X 3 Results - Vitals Vitals: Vital Signs - 24 hr 10/23/21 10/23/21 12:45 14:38 Temperature 36.3 C L Heart Rate 74 66 Respiratory 18 18 Rate Blood Pressure 148/103 H 127/90 H O2 Saturation 99 99 Oxygen O2 Source Room air - Rads (name of study) Left hand x-ray Radiology: Final report received, EMP read contemporaneously, See rad report PD MEDICAL DECISION MAKING - ED course Complexity details: reviewed results, re-evaluated patient, considered differential, d/w patient ED course: No acute findings on x-ray. No fracture. Placed in a splint for comfort. We will have her follow-up with her doctor for further care. Patient is right- handed. Patient counseled regarding signs and symptoms for which I believe and urgent re-evaluation would be necessary. Patient with good understanding of and agreement to plan and is comfortable going home at this time This document was made in part using voice recognition software. While efforts are made to proofread this document, sound alike and grammatical errors may occur. Departure - Departure Disposition: 01 Home, Self Care Clinical Impression: Contusion of hand Qualifiers: Encounter type: initial encounter Laterality: left Qualified Code(s): S60.222A - Contusion of left hand, initial encounter Condition: Good Instructions: ED Contusion Hand Follow-Up: HONORIO CARSON DO [Primary Care Provider] - Within 1 week Prescriptions: Ibuprofen [Motrin] 800 mg PO Q8H PRN #30 tablet PRN Reason: PAIN &/OR FEVER HYDROcod/ACETAM 5/325 [[place] 5/325] 1 - 2 ea PO Q6H PRN #14 tablet PRN Reason: Pain Comments: Please follow-up with your doctor for further care. Return if you worsen. Your x-ray does not show any acute abnormalities today. Your prescriptions were sent to [facility] in [place]. You can use the splint as needed for comfort. I would not stay in the splint longer than a few days. I am prescribing a short course of narcotic pain medication for you. These are potentially dangerous and addictive medications that should be used carefully. These medications may constipate you. Take an sjuj-sfd-nqdphgv stool softener (docusate) twice daily with plenty of water while taking these medications. If you go 24 hours without a bowel movement, take xpdi-eyg-qcgzvof miralax, per package instructions. Do not drink or drive while taking these medications. If you received narcotic or sedating medications while in the emergency department, do not drive for 24 hours. Store this medication in a safe, secure place and out of reach of children. It is a violation of federal law to give or sell this medication to another person or to use in a manner other than prescribed. The ED will not refill narcotic prescriptions, including prescriptions lost or stolen. To dispose of unwanted medications: 1. [facility] at [address] in [place] has a medication drop box. They accept prescription medications (in pill form) Tuesday through Tuesday 9:00 a.m. to 5:00 p.m. 2. The [facility] accepts prescription medications (in pill form only) for disposal year round. Call for more information. 3. Contact the [facility] for the next [facility] sponsored prescription drug collection event. , [phone], or [phone]; Discharge Date/Time: 10/23/21 14:44
[2021-10-23] MEDS ORDERED: IBUPROFEN 800 MG TABLET PO STA (13:33)
--- NOTE | 2021-10-23 14:12 | XRAY Report ---
PROCEDURE: Hand 3 View LT INDICATIONS: Trauma TECHNIQUE: 3 views of the hand(s) acquired. COMPARISON: None. FINDINGS: BONES: No acute, displaced fracture or dislocation. The carpal bones are normally aligned. SOFT TISSUES: No acute abnormality. IMPRESSION: 1.No acute osseous abnormality. Reviewed by: Alireza Waller MD on 10/23/2021 2:11 PM [facility] Approved by: Alireza Waller MD on 10/23/2021 2:11 PM [facility] Station ID: [id number]
[2021-10-23 14:41] VITALS: BP 127/90
== END 2021-10-23 14:44 | disposition home or self-care (01) ==
LOC: ED 12:30
DX: S60.222A Contusion of left hand, initial encounter (principal); W22.8XXA Striking against or struck by other objects, initial encounter; Y99.0 Civilian activity done for income or pay; F17.200 Nicotine dependence, unspecified, uncomplicated
CPT/HCPCS: 1040M; 73130; A9270; 99282; 99283

== ENCOUNTER 2022-03-07 12:04 | Emergency (ER) | payer MEDICAID ==
[2022-03-07 12:12] VITALS: BP 152/113
[2022-03-07] MEDS ORDERED: AMOX/CLAV 875 MG/125 MG TABLET PO STA (12:34)
[2022-03-07] MEDS ORDERED: HYDROcod/ACETAM 5/325 MG TABLET PO STA (12:34)
--- NOTE | 2022-03-07 12:38 | ED Physician Documentation ---
History of Present Illness - Stated complaint Stated Complaint: JAW PX - Chief complaint Chief Complaint: Heent - History obtained from History obtained from: Patient - History of Present Illness Timing: How many weeks ago (1) Pain level max: 8 Pain level now: 6 - Additonal information Additional information: Patient is a 41-year-old female who presents to the emergency department with right-sided jaw pain. Worse with eating and drinking. She states that she has known dental issues but has not seen a dentist. No fever. No chills. Nothing makes it better. No difficulty speaking, swallowing or breathing. Review of Systems Constitutional: denies: Fever, Chills GI: denies: Vomiting Skin: denies: Rash Musculoskeletal: denies: Neck pain, Back pain Neurologic: denies: Headache PD PAST MEDICAL HISTORY - Past Medical History Cardiovascular: Other Respiratory: Asthma, Sleep apnea Neuro: CVA (8 years ago, only had vertigo for short period after. 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 - Present Medications Home Medications: Ambulatory Orders Medication Instructions Recorded Confirmed Ibuprofen [Motrin] 800 mg PO Q6H PRN 08/27/20 08/27/20 Ipratropium/Albuterol [Duoneb] 3 ml INH QID PRN 08/27/20 08/27/20 clonazePAM [KlonoPIN] 0.5 mg PO BID PRN 08/27/20 08/27/20 Amox/Clav 875/125 [Augmentin] 1 each PO Q12H 7 Days #14 tablet 08/28/20 Ibuprofen [Motrin] 600 mg PO Q6HR PRN 5 Days #20 08/28/20 tablet Albuterol 2.5 mg INH Q4H PRN #30 neb 08/27/21 Benzonatate [Tessalon] 200 mg PO QID PRN #20 cap 08/27/21 predniSONE [Deltasone] 60 mg PO DAILY 5 Days #15 tablet 08/27/21 HYDROcod/ACETAM 5/325 [[place] 5/325] 1 - 2 ea PO Q6H PRN #14 tablet 02/18/22 Ibuprofen [Motrin] 800 mg PO Q8H PRN #30 tablet 10/23/21 Amox/Clav 875/125 [Augmentin] 1 tab PO Q12H #20 tablet 03/07/22 HYDROcod/ACETAM 5/325 [[place] 5/325] 1 - 2 ea PO Q6H PRN #14 tablet 03/07/22 - Allergies Allergies/Adverse Reactions: Allergies Allergy/AdvReac Type Severity Reaction Status Date / Time cephalexin [From Keflex] AdvReac Unknown Verified 03/07/22 12:11 codeine AdvReac Nausea Verified 03/07/22 12:11 - Social History Does the pt smoke?: Yes Smoking Status: Current every day smoker Does the pt drink ETOH?: Yes Does the pt have substance abuse?: Yes - Immunizations Immunizations are current?: No - POLST Patient has POLST: No PD ED PE NORMAL - Vitals Vital signs reviewed: Yes - General General: Alert and oriented X 3 - HEENT HEENT: Moist mucous membranes, Other (Poor dentition throughout, tender to palpation over the right lower molar. Mild swelling. No abscess. No fluctuance. Normal phonation. No trismus. Uvula midline.) - Neck Neck: Supple, no meningeal sign - Cardiac Cardiac: RRR - Respiratory Respiratory: No respiratory distress, Clear bilaterally - Derm Derm: Warm and dry - Neuro Neuro: Alert and oriented X 3 Results - Vitals Vitals: Vital Signs - 24 hr 03/07/22 12:09 Temperature 36.9 C Heart Rate 67 Respiratory 18 Rate Blood Pressure 152/113 H O2 Saturation 97 Oxygen O2 Source Room air PD MEDICAL DECISION MAKING - ED course Complexity details: considered differential, d/w patient ED course: 41-year-old female with dental caries and dental pain. Has swelling but no drainable abscess. Will start on antibiotics and pain medication and have her follow-up with her dentist. Patient counseled regarding signs and symptoms for which I believe and urgent re-evaluation would be necessary. Patient with good understanding of and agreement to plan and is comfortable going home at this time This document was made in part using voice recognition software. While efforts are made to proofread this document, sound alike and grammatical errors may occur. Departure - Departure Disposition: 01 Home, Self Care Clinical Impression: Pain due to dental caries Condition: Good Instructions: ED Tooth Pain Follow-Up: HONORIO CARSON DO [Primary Care Provider] - Within 1 week Prescriptions: Amox/Clav 875/125 [Augmentin] 1 tab PO Q12H #20 tablet HYDROcod/ACETAM 5/325 [[place] 5/325] 1 - 2 ea PO Q6H PRN #14 tablet PRN Reason: Pain Comments: Your prescription was sent to [facility] in [place]. Please follow-up with your doctor for further care. Return if you worsen. Take all antibiotics until gone. Please follow-up with a dentist this week. I am prescribing a short course of narcotic pain medication for you. These are potentially dangerous and addictive medications that should be used carefully. These medications may constipate you. Take an qzbt-sms-qchnrxe stool softener (docusate) twice daily with plenty of water while taking these medications. If you go 24 hours without a bowel movement, take kjvd-oad-yvcaawx miralax, per package instructions. Do not drink or drive while taking these medications. If you received narcotic or sedating medications while in the emergency department, do not drive for 24 hours. Store this medication in a safe, secure place and out of reach of children. It is a violation of federal law to give or sell this medication to another person or to use in a manner other than prescribed. The ED will not refill narcotic prescriptions, including prescriptions lost or stolen. To dispose of unwanted medications: 1. [facility] at [address] in [place] has a medication drop box. They accept prescription medications (in pill form) Tuesday through Tuesday 9:00 a.m. to 5:00 p.m. 2. The [facility] accepts prescription medications (in pill form only) for disposal year round. Call for more information. 3. Contact the [facility] for the next [facility] sponsored prescription drug collection event. , [phone], or [phone]; Discharge Date/Time: 03/07/22 12:44
== END 2022-03-07 12:44 | disposition home or self-care (01) ==
LOC: ED 12:04
DX: K02.9 Dental caries, unspecified (principal); F17.200 Nicotine dependence, unspecified, uncomplicated
CPT/HCPCS: 99282; 99283; A9270

== ENCOUNTER 2022-07-05 16:33 | Emergency (ER) | payer MEDICAID ==
[2022-07-05] MEDS ORDERED: DEXAMETHASONE 10 MG/ML VIAL IM STA (19:20)
[2022-07-05] MEDS ORDERED: IPRATROPIUM/ALBUTEROL 3 ML NEB INH STA (19:20)
[2022-07-05] MEDS ORDERED: ACETAMINOPHEN 325 MG TABLET PO STA (19:32)
[2022-07-05] MEDS ORDERED: IBUPROFEN 800 MG TABLET PO STA (19:32)
--- NOTE | 2022-07-05 20:09 | XRAY Report ---
PROCEDURE: Chest 1 View X-Ray INDICATIONS: cough TECHNIQUE: One view of the chest was acquired. COMPARISON: 12/25/18. FINDINGS: Surgical changes and devices: None. Lungs and pleura: No pleural effusions or pneumothorax. Lungs are clear. Mediastinum: Mediastinal contours appear normal. Heart size is normal. Bones and chest wall: No suspicious bony lesions. Overlying soft tissues appear unremarkable. IMPRESSION: 1. No acute cardiopulmonary disease. Reviewed by: Mamadou Sparks MD on 07/05/2022 8:07 PM PDT Approved by: Maamdou Sparks MD on 07/05/2022 8:07 PM PDT Station ID: [id number]
--- NOTE | 2022-07-05 20:26 | ED Physician Documentation ---
History of Present Illness - Stated complaint Stated Complaint: CONGESTION/CHEST PRESSURE - Chief complaint Chief Complaint: Resp - History obtained from History obtained from: Patient - Additonal information Additional information: The patient comes to the emergency department chief complaint of congestion and cough for the last 5 days. She also has underlying asthma and states that her inhalers do not seem to be helping LMH. The patient denies any fevers. No GI symptoms. No other complaints at this time. Review of Systems Ten Systems: 10 systems reviewed and negative Constitutional: reports: Reviewed and negative Eyes: reports: Reviewed and negative Ears: reports: Reviewed and negative Nose: reports: Rhinorrhea / runny nose, Congestion Throat: reports: Reviewed and negative Cardiac: reports: Reviewed and negative Respiratory: reports: Dyspnea (Mild), Cough GI: reports: Reviewed and negative : reports: Reviewed and negative Skin: reports: Reviewed and negative Musculoskeletal: reports: Reviewed and negative Neurologic: reports: Reviewed and negative Psychiatric: reports: Reviewed and negative Endocrine: reports: Reviewed and negative Immunocompromised: reports: Reviewed and negative PD PAST MEDICAL HISTORY - Past Medical History Cardiovascular: Other Respiratory: Asthma, Sleep apnea Neuro: CVA (8 years ago, only had vertigo for short period after. 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 - Present Medications Home Medications: Ambulatory Orders Medication Instructions Recorded Confirmed Ibuprofen [Motrin] 800 mg PO Q6H PRN 08/27/20 08/27/20 Ipratropium/Albuterol [Duoneb] 3 ml INH QID PRN 08/27/20 08/27/20 clonazePAM [KlonoPIN] 0.5 mg PO BID PRN 08/27/20 08/27/20 Amox/Clav 875/125 [Augmentin] 1 each PO Q12H 7 Days #14 tablet 08/28/20 Ibuprofen [Motrin] 600 mg PO Q6HR PRN 5 Days #20 08/28/20 tablet Albuterol 2.5 mg INH Q4H PRN #30 neb 08/27/21 Benzonatate [Tessalon] 200 mg PO QID PRN #20 cap 12/23/21 predniSONE [Deltasone] 60 mg PO DAILY 5 Days #15 tablet 08/27/21 HYDROcod/ACETAM 5/325 [[place] 5/325] 1 - 2 ea PO Q6H PRN #14 tablet 10/23/21 Ibuprofen [Motrin] 800 mg PO Q8H PRN #30 tablet 10/23/21 Amox/Clav 875/125 [Augmentin] 1 tab PO Q12H #20 tablet 03/07/22 HYDROcod/ACETAM 5/325 [[place] 5/325] 1 - 2 ea PO Q6H PRN #14 tablet 03/07/22 Albuterol 2.5 mg INH Q4H PRN #30 ml 07/05/22 Albuterol Sulf [Ventolin Hfa 1 - 2 puffs INH Q4HR PRN #1 each 07/05/22 Inhaler] predniSONE [Deltasone] 60 mg PO DAILY 5 Days #15 tablet 07/05/22 - Allergies Allergies/Adverse Reactions: Allergies Allergy/AdvReac Type Severity Reaction Status Date / Time cephalexin [From Keflex] AdvReac Unknown Verified 07/05/22 16:51 codeine AdvReac Nausea Verified 07/05/22 16:51 - Social History Does the pt smoke?: Yes Smoking Status: Current every day smoker Does the pt drink ETOH?: Yes Does the pt have substance abuse?: Yes - Immunizations Immunizations are current?: No - POLST Patient has POLST: No PD ED PE NORMAL - Vitals Vital signs reviewed: Yes - General General: Alert and oriented X 3, No acute distress, Well developed/nourished - HEENT HEENT: Atraumatic, PERRL, EOMI, Moist mucous membranes - Neck Neck: Supple, no meningeal sign - Cardiac Cardiac: RRR, No murmur - Respiratory Respiratory: No respiratory distress, Other (The patient has a frequent congested cough. She also has moderate wheezes in bilateral lung jimenez, though respirations are not labored.) - Abdomen Abdomen: Soft, Non tender, Non distended - Derm Derm: Warm and dry - Extremities Extremities: No deformity - Neuro Neuro: Alert and oriented X 3 - Psych Psych: Normal mood, Normal affect Results - Vitals Vitals: Vital Signs - 24 hr 07/05/22 07/05/22 07/05/22 16:48 19:45 20:34 Temperature 36.8 C 36.7 C Heart Rate 68 65 Respiratory 16 28 H 16 Rate Blood Pressure 157/92 H 149/88 H O2 Saturation 97 98 Oxygen O2 Source Room air - Rads (name of study) Chest x-ray Radiology: Final report received, EMP read indepedently, See rad report (Negativ e) PD MEDICAL DECISION MAKING - ED course Complexity details: reviewed results, re-evaluated patient, considered differential, d/w patient ED course: The patient was treated with a DuoNeb and Decadron, after which she reported feeling much better. She was sent for chest x-ray which was negative. I have discussed symptomatic management at home with this patient. Of also given her prescription for prednisone. She has a nebulizer machine at home so I will prescribe some nebs for her, as well. We have discussed the usual indications for return. Departure - Departure Disposition: 01 Home, Self Care Clinical Impression: Upper respiratory infection, viral Acute asthma exacerbation Qualifiers: Asthma severity: mild Asthma persistence: intermittent Qualified Code(s): J45.21 - Mild intermittent asthma with (acute) exacerbation Condition: Stable Instructions: ED Reactive Airway Disease, ED Viral Syndrome Prescriptions: Albuterol Sulf [Ventolin Hfa Inhaler] 1 - 2 puffs INH Q4HR PRN #1 each PRN Reason: Shortness Of Air/Wheezing Albuterol 2.5 mg INH Q4H PRN #30 ml PRN Reason: Wheezing predniSONE [Deltasone] 60 mg PO DAILY 5 Days #15 tablet Comments: Your chest x-ray looks good. You were quite wheezy today, and most likely, and the viral illness that you have has been causing your asthma to act up. You have been given a dose of steroids and nebulizer treatment here in the emergency department. A prescription for steroids and some or nebules for your nebulizer machine has been electronically transmitted to the [facility] pharmacy in [place] at your request. Please take the steroids every day and use the nebulizers as well as your albuterol inhaler as needed. Discharge Date/Time: 07/05/22 20:34
[2022-07-05 20:35] VITALS: BP 149/88
== END 2022-07-05 20:34 | disposition home or self-care (01) ==
LOC: ED 16:33
DX: J06.9 Acute upper respiratory infection, unspecified (principal); J45.21 Mild intermittent asthma with (acute) exacerbation; F17.200 Nicotine dependence, unspecified, uncomplicated
CPT/HCPCS: 71045; 94640; 94664; 96372; 99283; 99284; A9270

== ENCOUNTER 2022-07-28 16:46 | Emergency (ER) | payer MEDICAID ==
[2022-07-28] MEDS ORDERED: NIRMATRELVIR/RITONAVIR PREPACK PO STA (17:38)
[2022-07-28] MEDS ORDERED: HYDROcod/ACETAM 5/325 MG TABLET PO STA (17:38)
--- NOTE | 2022-07-28 17:40 | ED Physician Documentation ---
PD HPI HEENT - Stated complaint Stated Complaint: C+, BODY ACHE - Chief complaint Chief Complaint: Resp - History obtained from History obtained from: Patient (42-year-old woman with underlying asthma has not been immunized against COVID and became symptomatic yesterday with headache, body aches. She is coughing but does not feel more short of breath than normal noting that she has chronic asthma.) Review of Systems Constitutional: reports: Chills, Myalgias, Fatigue. denies: Fever Nose: reports: Rhinorrhea / runny nose Respiratory: reports: Cough PD PAST MEDICAL HISTORY - Past Medical History Cardiovascular: Other Respiratory: Asthma, Sleep apnea Neuro: CVA (8 years ago, only had vertigo for short period after. 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 - Present Medications Home Medications: Ambulatory Orders Medication Instructions Recorded Confirmed Ibuprofen [Motrin] 800 mg PO Q6H PRN 08/27/20 08/27/20 Ipratropium/Albuterol [Duoneb] 3 ml INH QID PRN 08/27/20 08/27/20 clonazePAM [KlonoPIN] 0.5 mg PO BID PRN 08/27/20 08/27/20 Amox/Clav 875/125 [Augmentin] 1 each PO Q12H 7 Days #14 tablet 08/28/20 Ibuprofen [Motrin] 600 mg PO Q6HR PRN 5 Days #20 08/28/20 tablet Albuterol 2.5 mg INH Q4H PRN #30 neb 08/27/21 Benzonatate [Tessalon] 200 mg PO QID PRN #20 cap 08/27/21 predniSONE [Deltasone] 60 mg PO DAILY 5 Days #15 tablet 08/27/21 HYDROcod/ACETAM 5/325 [[place] 5/325] 1 - 2 ea PO Q6H PRN #14 tablet 10/23/21 Ibuprofen [Motrin] 800 mg PO Q8H PRN #30 tablet 10/23/21 Amox/Clav 875/125 [Augmentin] 1 tab PO Q12H #20 tablet 03/07/22 HYDROcod/ACETAM 5/325 [[place] 5/325] 1 - 2 ea PO Q6H PRN #14 tablet 03/07/22 Albuterol 2.5 mg INH Q4H PRN #30 ml 07/05/22 Albuterol Sulf [Ventolin Hfa 1 - 2 puffs INH Q4HR PRN #1 each 07/05/22 Inhaler] predniSONE [Deltasone] 60 mg PO DAILY 5 Days #15 tablet 07/05/22 HYDROcod/ACETAM 5/325 [[place] 5/325] 1 - 2 tab PO Q6H PRN #15 tablet 07/28/22 predniSONE [Deltasone] 20 mg PO [id number] #21 tab 07/28/22 - Allergies Allergies/Adverse Reactions: Allergies Allergy/AdvReac Type Severity Reaction Status Date / Time cephalexin [From Keflex] AdvReac Unknown Verified 07/28/22 16:56 codeine AdvReac Nausea Verified 07/28/22 16:56 - Social History Does the pt smoke?: Yes Smoking Status: Current every day smoker Does the pt drink ETOH?: Yes Does the pt have substance abuse?: Yes - Immunizations Immunizations are current?: No - POLST Patient has POLST: No PD ED PE NORMAL - Vitals Vital signs reviewed: Yes - General General: Alert and oriented X 3, No acute distress - HEENT HEENT: PERRL, EOMI - Neck Neck: Supple, no meningeal sign, No bony TTP - Cardiac Cardiac: RRR, No murmur - Respiratory Respiratory: Other (Mild expiratory wheezes without focal findings, good air movement) - Abdomen Abdomen: Non tender - Back Back: No CVA TTP, No spinal TTP - Derm Derm: Normal color, Warm and dry - Neuro Neuro: Alert and oriented X 3, Normal speech Results - Vitals Vitals: Vital Signs - 24 hr 07/28/22 07/28/22 07/28/22 16:52 16:55 17:48 Temperature 37.1 C 37.1 C 37.0 C Heart Rate 80 80 80 Respiratory 28 H 28 H 20 Rate Blood Pressure 126/84 H 126/84 H 124/82 H O2 Saturation 98 98 98 Oxygen O2 Source Room air PD MEDICAL DECISION MAKING - ED course ED course: 42-year-old woman with underlying asthma and tobacco abuse presents with symptomatic COVID starting yesterday. She is unimmunized against COVID. She needed something for pain and did want to go ahead with antiviral medications after discussion. Given that she has active wheezing she is also given steroids. Departure - Departure Disposition: 01 Home, Self Care Clinical Impression: Acute asthma exacerbation, COVID-19 Condition: Good Record reviewed to determine appropriate education?: Yes Instructions: Asthma Dc, ED Viral Syndrome Prescriptions: predniSONE [Deltasone] 20 mg PO [id number] #21 tab HYDROcod/ACETAM 5/325 [[place] 5/325] 1 - 2 tab PO Q6H PRN #15 tablet PRN Reason: Pain Comments: I sent your prescriptions electronically to [facility] in [place]. You do need to quarantine for the full 10 days I think and I wrote you a note for same. Return if worse. I am prescribing a short course of narcotic pain medication for you. These are potentially dangerous and addictive medications that should be used carefully. These medications may constipate you. Take an [id number] stool softener (docusate) twice daily with plenty of water while taking these medications. If you go 24 hours without a bowel movement, take qqqj-hip-medwmss miralax, per package instructions. Do not drink or drive while taking these medications. If you received narcotic or sedating medications while in the emergency department, do not drive for 24 hours. Store this medication in a safe, secure place and out of reach of children. It is a violation of federal law to give or sell this medication to another person or to use in a manner other than prescribed. The ED will not refill narcotic prescriptions, including prescriptions lost or stolen. To dispose of unwanted medications: 1. [facility] at [address] in [place] has a medication drop box. They accept prescription medications (in pill form) Tuesday through Tuesday 9:00 a.m. to 5:00 p.m. 2. The [facility] accepts prescription medications (in pill form only) for disposal year round. Call for more information. 3. Contact the [facility] for the next [facility] sponsored prescription drug collection event. , [phone], or [phone]; Note that many narcotic pain relievers also contain Tylenol/acetaminophen. Please ensure that your total dose of acetaminophen from all sources does not exceed 3 g (3000 mg) per day. Forms: Activity restrictions Discharge Date/Time: 07/28/22 17:48
[2022-07-28 17:49] VITALS: BP 124/82
== END 2022-07-28 17:48 | disposition home or self-care (01) ==
LOC: ED 16:46
DX: U07.1 COVID-19 (principal); J45.901 Unspecified asthma with (acute) exacerbation; F17.200 Nicotine dependence, unspecified, uncomplicated
CPT/HCPCS: 99281; 99282; A9270; J3490

== ENCOUNTER 2022-11-16 18:14 | Emergency (ER) | payer MEDICAID ==
[2022-11-16] MEDS ORDERED: IPRATROPIUM/ALBUTEROL 3 ML NEB INH STA (18:33)
[2022-11-16] MEDS ORDERED: DROPERIDOL 5 MG/2 ML VIAL IVP STA (18:33)
[2022-11-16] MEDS ORDERED: SODIUM CHLORIDE 0.9% 1,000 ML IV STA (18:33)
[2022-11-16 18:40] LABS: BASOPHILS # (AUTO) 0.1 10^3/uL (0.0-0.1); EOSINOPHILS # (AUTO) 0.3 10^3/uL (0.0-0.7); EOSINOPHILS % (AUTO) 4.7 %; HCT - HEMATOCRIT 40.7 % (37.0-47.0); HGB - HEMOGLOBIN 12.9 g/dL (12.0-16.0); LYMPHOCYTES # (AUTO) 1.4 10^3/uL (1.5-3.5); LYMPHOCYTES % (AUTO) 23.1 %; MEAN CORPUSCULAR HGB CONC 31.7 g/dL (32.0-36.0); MEAN CORPUSCULAR VOLUME 91.5 fL (81.0-99.0); MEAN PLATELET VOLUME 9.5 fL (7.9-10.8); MONOCYTES # (AUTO) 0.6 10^3/uL (0.0-1.0); NEUTROPHILS # (AUTO) 3.8 10^3/uL (1.5-6.6); NEUTROPHILS % (AUTO) 60.9 %; PLT - PLATELET COUNT 358 10^3/uL (130-450); RED BLOOD COUNT 4.45 10^6/uL (4.20-5.40); RED CELL DISTRIBUTION WIDTH 14.5 % (12.0-15.0); WHITE BLOOD COUNT 6.2 x10^3/uL (4.8-10.8)
--- NOTE | 2022-11-16 18:41 | ED Physician Documentation ---
PD HPI NVD - Stated complaint Stated Complaint: VOMIT/BODY PX - Chief complaint Chief Complaint: Abd Pain - History obtained from History obtained from: Patient - History of Present Illness Timing - onset: How many days ago (3) Timing - duration: Days (3) Timing - details: Gradual onset Pain level max: 4 Pain level now: 3 Associated symptoms: No: Fever, Abdominal pain, Chest pain, Hematemesis, Melena, Dizzy, Near syncope / syncope, Loss of appetite - Additonal information Additional information: 42-year-old female presents to the emergency department complaint of cough, congestion and generally feeling unwell for the past 3 days. She states that she has had nausea, vomiting, diarrhea as well. No blood in the stool or emesis. She states that she has a history of "asthma". She does use an inhaler at home. Smokes over a pack a day. Also uses marijuana daily. Denies any regular alcohol use. No abdominal pain. No urinary symptoms. Review of Systems Constitutional: denies: Fever, Chills Nose: reports: Rhinorrhea / runny nose, Congestion Respiratory: reports: Cough, Wheezing GI: reports: Nausea, Vomiting, Diarrhea. denies: Abdominal Pain, Hematemesis, Bloody / black stool : denies: Dysuria, Frequency, Hesitancy Skin: denies: Rash Musculoskeletal: denies: Neck pain, Back pain Neurologic: denies: Headache PD PAST MEDICAL HISTORY - Past Medical History Past Medical History: Yes Cardiovascular: Other Respiratory: Asthma, Sleep apnea Neuro: CVA (8 years ago, only had vertigo for short period after. 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 - Present Medications Home Medications: Ambulatory Orders Medication Instructions Recorded Confirmed Ibuprofen [Motrin] 800 mg PO Q6H PRN 08/27/20 08/27/20 Ipratropium/Albuterol [Duoneb] 3 ml INH QID PRN 08/27/20 08/27/20 clonazePAM [KlonoPIN] 0.5 mg PO BID PRN 08/27/20 08/27/20 Amox/Clav 875/125 [Augmentin] 1 each PO Q12H 7 Days #14 tablet 08/28/20 Ibuprofen [Motrin] 600 mg PO Q6HR PRN 5 Days #20 08/28/20 tablet Albuterol 2.5 mg INH Q4H PRN #30 neb 08/27/21 Benzonatate [Tessalon] 200 mg PO QID PRN #20 cap 08/27/21 predniSONE [Deltasone] 60 mg PO DAILY 5 Days #15 tablet 08/27/21 HYDROcod/ACETAM 5/325 [[place] 5/325] 1 - 2 ea PO Q6H PRN #14 tablet 10/23/21 Ibuprofen [Motrin] 800 mg PO Q8H PRN #30 tablet 10/23/21 Amox/Clav 875/125 [Augmentin] 1 tab PO Q12H #20 tablet 03/07/22 HYDROcod/ACETAM 5/325 [[place] 5/325] 1 - 2 ea PO Q6H PRN #14 tablet 03/07/22 Albuterol 2.5 mg INH Q4H PRN #30 ml 07/05/22 Albuterol Sulf [Ventolin Hfa 1 - 2 puffs INH Q4HR PRN #1 each 07/05/22 Inhaler] predniSONE [Deltasone] 60 mg PO DAILY 5 Days #15 tablet 07/05/22 HYDROcod/ACETAM 5/325 [[place] 5/325] 1 - 2 tab PO Q6H PRN #15 tablet 07/28/22 predniSONE [Deltasone] 20 mg PO [id number] #21 tab 07/28/22 Promethazine [Phenergan] 25 mg PO Q6H PRN #10 tab 11/16/22 - Allergies Allergies/Adverse Reactions: Allergies Allergy/AdvReac Type Severity Reaction Status Date / Time cephalexin [From Keflex] AdvReac Unknown Verified 11/16/22 18:17 codeine AdvReac Nausea Verified 11/16/22 18:17 - Social History Does the pt smoke?: Yes Smoking Status: Current every day smoker Does the pt drink ETOH?: Yes Does the pt have substance abuse?: Yes - Immunizations Immunizations are current?: No - POLST Patient has POLST: No PD ED PE NORMAL - Vitals Vital signs reviewed: Yes - General General: Alert and oriented X 3, No acute distress, Well developed/nourished - HEENT HEENT: Moist mucous membranes - Neck Neck: Supple, no meningeal sign - Cardiac Cardiac: RRR, Strong equal pulses - Respiratory Respiratory: No respiratory distress, Other (wheezing B) - Abdomen Abdomen: Soft, Non tender, Non distended - Derm Derm: Warm and dry, No rash - Extremities Extremities: No edema, No calf tenderness / cord - Neuro Neuro: Alert and oriented X 3 - Psych Psych: Normal mood, Normal affect Results - Vitals Vitals: Vital Signs - 24 hr 11/16/22 11/16/22 11/16/22 18:17 18:58 19:11 Temperature 36.5 C Heart Rate 90 80 72 Respiratory 24 18 16 Rate Blood Pressure 140/90 H 133/82 H O2 Saturation 96 97 Oxygen O2 Source Room air - Labs Labs: Laboratory Tests 11/16/22 11/16/22 11/16/22 18:30 18:30 18:37 WBC 6.2 RBC 4.45 Hgb 12.9 Hct 40.7 MCV 91.5 MCH 29.0 MCHC 31.7 L RDW 14.5 Plt Count 358 MPV 9.5 Neut # (Auto) 3.8 Lymph # (Auto) 1.4 L A[place] # (Auto) 0.6 Eos # (Auto) 0.3 Baso # (Auto) 0.1 Absolute Nucleated RBC 0.00 Nucleated RBC % 0.0 Sodium 134 L Potassium 3.6 Chloride 103 Carbon Dioxide 24 Anion Gap 7.0 BUN 7 Creatinine 0.5 Estimated GFR (MDRD) 135 Glucose 99 Calcium 8.0 L Total Bilirubin 0.8 AST 99 H ALT 92 H Alkaline Phosphatase 85 Total Protein 7.0 Albumin 3.7 Globulin 3.3 Albumin/Globulin Ratio 1.1 Lipase 32 Urine Color Urine Clarity Urine pH Ur Specific [place] Urine Protein Urine Glucose (UA) Urine Ketones Urine Occult Blood Urine Nitrite Urine Bilirubin Urine Urobilinogen Ur Leukocyte Esterase Urine RBC Urine WBC Ur Squamous Epith Cells Urine Bacteria Ur Microscopic Review Urine Culture Comments Urine HCG, Qual Nasal Adenovirus (PCR) NOT DETECTED Nasal B. parapertussis DNA (PCR) NOT DETECTED Nasal Coronavir 229E PCR NOT DETECTED Nasal Coronavir HKU1 PCR NOT DETECTED Nasal Coronavir NL63 PCR NOT DETECTED Nasal Coronavir OC43 PCR NOT DETECTED Nasal Enterovir/Rhinovir PCR NOT DETECTED Nasal Influenza B PCR NOT DETECTED Nasal Influenza A PCR NOT DETECTED Nasal Parainfluen 1 PCR NOT DETECTED Nasal Parainfluen 2 PCR NOT DETECTED Nasal Parainfluen 3 PCR NOT DETECTED Nasal Parainfluen 4 PCR NOT DETECTED Nasal RSV (PCR) NOT DETECTED Nasal B.pertussis DNA PCR NOT DETECTED Nasal C.pneumoniae (PCR) NOT DETECTED Maurilio Human Metapneumo PCR NOT DETECTED Nasal M.pneumoniae (PCR) NOT DETECTED Nasal SARS-CoV-2 (PCR) NOT DETECTED 11/16/22 18:47 WBC RBC Hgb Hct MCV MCH MCHC RDW Plt Count MPV Neut # (Auto) Lymph # (Auto) Aiken # (Auto) Eos # (Auto) Baso # (Auto) Absolute Nucleated RBC Nucleated RBC % Sodium Potassium Chloride Carbon Dioxide Anion Gap BUN Creatinine Estimated GFR (MDRD) Glucose Calcium Total Bilirubin AST ALT Alkaline Phosphatase Total Protein Albumin Globulin Albumin/Globulin Ratio Lipase Urine Color YELLOW Urine Clarity HAZY Urine pH 5.5 Ur Specific [place] >=1.030 H Urine Protein NEGATIVE Urine Glucose (UA) NEGATIVE Urine Ketones NEGATIVE Urine Occult Blood NEGATIVE Urine Nitrite NEGATIVE Urine Bilirubin NEGATIVE Urine Urobilinogen 0.2 (NORMAL) Ur Leukocyte Esterase TRACE H Urine RBC 0-5 Urine WBC 6-10 H Ur Squamous Epith Cells MOD Squamous H Urine Bacteria Moderate H Ur Microscopic Review INDICATED Urine Culture Comments NOT INDICATED Urine HCG, Qual NEGATIVE Nasal Adenovirus (PCR) Nasal B. parapertussis DNA (PCR) Nasal Coronavir 229E PCR Nasal Coronavir HKU1 PCR Nasal Coronavir NL63 PCR Nasal Coronavir OC43 PCR Nasal Enterovir/Rhinovir PCR Nasal Influenza B PCR Nasal Influenza A PCR Nasal Parainfluen 1 PCR Nasal Parainfluen 2 PCR Nasal Parainfluen 3 PCR Nasal Parainfluen 4 PCR Nasal RSV (PCR) Nasal B.pertussis DNA PCR Nasal C.pneumoniae (PCR) Maurilio Human Metapneumo PCR Nasal M.pneumoniae (PCR) Nasal SARS-CoV-2 (PCR) PD Medical Decision Making - ED course Complexity details: reviewed results, re-evaluated patient, considered differential, d/w patient, d/w family ED course: Patient is very well-appearing, nontoxic. Afebrile. No hypoxia or respiratory distress. Her CBC does not show any significant abnormalities. Chemistry shows a mild elevation of her LFTs and mild hyponatremia. Urinalysis appears contaminated, it is also concentrated, consistent with dehydration. Respiratory PCR is negative. Chest x-ray does not show any acute abnormalities. Wheezing improved after nebulizer treatment. Given IV fluids and IV droperidol. Tolerating p.o. without difficulty. Abdomen is soft, nontender nondistended. Her symptoms are consistent with a viral syndrome and likely viral gastroenteritis. We will prescribe nausea medication for home and have her follow-up with her doctor. Patient counseled regarding signs and symptoms for which I believe and urgent re-evaluation would be necessary. Patient with good understanding of and agreement to plan and is comfortable going home at this time This document was made in part using voice recognition software. While efforts are made to proofread this document, sound alike and grammatical errors may occur. Departure - Departure Disposition: Home, Self Care Clinical Impression: Viral gastroenteritis Condition: Good Instructions: ED Gastroenteritis Viral Follow-Up: HONORIO CARSON DO [Primary Care Provider] - Within 1 week Prescriptions: Promethazine [Phenergan] 25 mg PO Q6H PRN #10 tab PRN Reason: Nausea / Vomiting Comments: Drink plenty of fluid and rest. Please follow-up with your doctor for further care. Your prescriptions were sent to [facility] in [place]. You can use the Phenergan as needed for nausea and vomiting. Please return if you worsen. This should improve over the next 1 to 2 days. Discharge Date/Time: 11/16/22 19:57
[2022-11-16 18:46] LABS: ALBUMIN 3.7 g/dL (3.2-5.5); ALBUMIN/GLOBULIN RATIO 1.1 (1.0-2.2); BILIRUBIN,TOTAL 0.8 mg/dL (0.2-1.0); CREATININE 0.5 mg/dL (0.4-1.0); POTASSIUM 3.6 mmol/L (3.5-5.0)
[2022-11-16 18:51] LABS: BILIRUBIN,URINE NEGATIVE (NEGATIVE); GLUCOSE, URINE (UA) NEGATIVE (NEGATIVE); KETONES,URINE (UA) NEGATIVE (NEGATIVE); LEUKOCYTE ESTERASE, URINE TRACE (NEGATIVE); NITRITE,URINE NEGATIVE (NEGATIVE); OCCULT BLOOD,URINE NEGATIVE (NEGATIVE); PH,URINE 5.5 PH (5.0-7.5); PROTEIN,URINE NEGATIVE (NEGATIVE); UROBILINOGEN,URINE 0.2 (NORMAL) E.U./dL (NORMAL)
[2022-11-16 18:52] LABS: CLARITY,URINE HAZY (CLEAR)
[2022-11-16 18:55] LABS: HCG UR QUAL NEGATIVE
[2022-11-16 18:59] VITALS: BP 133/82
[2022-11-16 19:06] LABS: BACTERIA,URINE Moderate /HPF (None Seen); RBC,URINE 0-5 /HPF (0-5); SQUAMOUS EPITHELIAL CELL,UR MOD Squamous (<= Few)
--- NOTE | 2022-11-16 19:12 | XRAY Report ---
PROCEDURE: Chest 1 View X-Ray INDICATIONS: cough TECHNIQUE: One view of the chest was acquired. COMPARISON: None. FINDINGS: Surgical changes and devices: None. Lungs and pleura: No pleural effusions or pneumothorax. Lungs are clear. Mediastinum: Mediastinal contours appear normal. Heart size is normal. Bones and chest wall: No suspicious bony lesions. Overlying soft tissues appear unremarkable. IMPRESSION: No acute cardiopulmonary process demonstrated radiographically. Reviewed by: Mert Dietz MD on 11/16/2022 7:11 PM PDT Approved by: Mert Dietz MD on 11/16/2022 7:11 PM PDT Station ID: [id number]
[2022-11-16 19:37] LABS: B. PARAPERTUSSIS- RESP PCR PAN NOT DETECTED; B. PERTUSSIS- RESP PCR PANEL NOT DETECTED; C. PNEUMONIAE- RESP PCR PANEL NOT DETECTED; CORONAVIRUS 229E-RESP PCR NOT DETECTED; CORONAVIRUS HKU1-RESP PCR NOT DETECTED; CORONAVIRUS NL63-RESP PCR NOT DETECTED; CORONAVIRUS OC43-RESP PCR NOT DETECTED; HUMAN METAPNEUMOVIRUS NOT DETECTED; INFLUENZA A- RESP PCR PANEL NOT DETECTED; INFLUENZA B - RESP PCR PANEL NOT DETECTED; M. PNEUMONIAE- RESP PCR PANEL NOT DETECTED; PARAINFLUENZA VIRUS 1 NOT DETECTED; PARAINFLUENZA VIRUS 2 NOT DETECTED; PARAINFLUENZA VIRUS 3 NOT DETECTED; PARAINFLUENZA VIRUS 4 NOT DETECTED; RHINOVIRUS/ENTEROVIRUS NOT DETECTED; RSV- RESP PCR PANEL NOT DETECTED; SARS-CoV-2 -RESP PCR PANEL NOT DETECTED
== END 2022-11-16 19:57 | disposition home or self-care (01) ==
LOC: ED 18:14
DX: A08.4 Viral intestinal infection, unspecified (principal); F17.200 Nicotine dependence, unspecified, uncomplicated; Z20.822 Contact with and (suspected) exposure to COVID-19
CPT/HCPCS: 36415; 80053; 81001; 81003; 81025; 83690; 85025; 87086; 87633; 94640; 96374; 99284

== ENCOUNTER 2023-07-06 18:34 | Emergency (ER) | payer MEDICAID ==
[2023-07-06 20:05] VITALS: BP 148/100; O2SAT 96
[2023-07-06] MEDS ORDERED: oxyCODONE/ACET 5/325 Prepack 4 PO STA (20:14)
--- NOTE | 2023-07-06 20:20 | ED Physician Documentation ---
History of Present Illness - Stated complaint Stated Complaint: MOUTH PX - Chief complaint Chief Complaint: Heent - History obtained from History obtained from: Patient - Additonal information Additional information: 42yF presents to the ED with dental pain X 1 month, Status post 10-day course of clindamycin finished yesterday. Denies fever, swelling Or difficulty swallowing or speaking. Does have significant pain refractory to [id number] medications. PD PAST MEDICAL HISTORY - Past Medical History Cardiovascular: Other Respiratory: Asthma, Sleep apnea Neuro: CVA (8 years ago, only had vertigo for short period after. 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 - Present Medications Home Medications: Ambulatory Orders Medication Instructions Recorded Confirmed Ibuprofen [Motrin] 800 mg PO Q6H PRN 08/27/20 08/27/20 Ipratropium/Albuterol [Duoneb] 3 ml INH QID PRN 08/27/20 08/27/20 clonazePAM [KlonoPIN] 0.5 mg PO BID PRN 08/27/20 08/27/20 Amox/Clav 875/125 [Augmentin] 1 each PO Q12H 7 Days #14 tablet 08/28/20 Ibuprofen [Motrin] 600 mg PO Q6HR PRN 5 Days #20 08/28/20 tablet Albuterol 2.5 mg INH Q4H PRN #30 neb 08/27/21 Benzonatate [Tessalon] 200 mg PO QID PRN #20 cap 08/27/21 predniSONE [Deltasone] 60 mg PO DAILY 5 Days #15 tablet 08/27/21 HYDROcod/ACETAM 5/325 [[place] 5/325] 1 - 2 ea PO Q6H PRN #14 tablet 10/23/21 Ibuprofen [Motrin] 800 mg PO Q8H PRN #30 tablet 10/23/21 Amox/Clav 875/125 [Augmentin] 1 tab PO Q12H #20 tablet 03/07/22 HYDROcod/ACETAM 5/325 [[place] 5/325] 1 - 2 ea PO Q6H PRN #14 tablet 03/07/22 Albuterol 2.5 mg INH Q4H PRN #30 ml 07/05/22 Albuterol Sulf [Ventolin Hfa 1 - 2 puffs INH Q4HR PRN #1 each 07/05/22 Inhaler] predniSONE [Deltasone] 60 mg PO DAILY 5 Days #15 tablet 07/05/22 HYDROcod/ACETAM 5/325 [[place] 5/325] 1 - 2 tab PO Q6H PRN #15 tablet 07/28/22 predniSONE [Deltasone] 20 mg PO [id number] #21 tab 07/28/22 Promethazine [Phenergan] 25 mg PO Q6H PRN #10 tab 11/16/22 Oxycodone HCl/Acetaminophen 1 each PO Q4H PRN #8 tablet 07/06/23 [Oxycodone-Acetaminophn 7.5-325] - Allergies Allergies/Adverse Reactions: Allergies Allergy/AdvReac Type Severity Reaction Status Date / Time cephalexin [From Keflex] AdvReac Unknown Verified 07/06/23 18:48 codeine AdvReac Nausea Verified 07/06/23 18:48 - Social History Does the pt smoke?: Yes Smoking Status: Current every day smoker Does the pt drink ETOH?: Yes Does the pt have substance abuse?: Yes - Immunizations Immunizations are current?: No - POLST Patient has POLST: No PD ED PE NORMAL - Vitals Vital signs reviewed: Yes - General General: Alert and oriented X 3, No acute distress, Well developed/nourished - HEENT HEENT: Atraumatic, PERRL, EOMI, Moist mucous membranes, Pharynx benign, Other (poor dentition with multiple caries, fillings, missing teeth) - Derm Derm: Normal color, Warm and dry - Extremities Extremities: No deformity - Psych Psych: Normal mood, Normal affect Results - Vitals Vitals: Vital Signs - 24 hr 07/06/23 07/06/23 18:43 19:55 Temperature 36.5 C 36.9 C Heart Rate 82 95 Respiratory 17 20 Rate Blood Pressure 138/123 H 148/100 H O2 Saturation 99 96 Oxygen O2 Source Room air PD Medical Decision Making - ED course ED course: 42yF presents with R lower dental pain X 1month, worsening acutely tonight. patient has appointment with dental 07/15. Percoset rx sent to pharmacy and prepack provided with counseling. return precautions given. Departure - Departure Disposition: 01 Home, Self Care Clinical Impression: Pain, dental Condition: Stable Instructions: ED Tooth Pain Prescriptions: Oxycodone HCl/Acetaminophen [Oxycodone-Acetaminophn 7.5-325] 1 each PO Q4H PRN #8 tablet PRN Reason: Pain >8 Comments: You were seen in the emergency department for tooth pain. Electronic prescription for Percocet was sent to [facility] in [place]. Please follow-up with your primary care provider and return to the emergency department if you have any new or worsening symptoms or other concerns. Forms: PCP List Discharge Date/Time: 07/06/23 20:39
== END 2023-07-06 20:39 | disposition home or self-care (01) ==
LOC: ED 18:34
DX: K08.89 Other specified disorders of teeth and supporting structures (principal); E66.01 Morbid (severe) obesity due to excess calories; F17.200 Nicotine dependence, unspecified, uncomplicated; Z79.899 Other long term (current) drug therapy
CPT/HCPCS: 99282